=== PATIENT | female | born 1940 | race Caucasian/White ===

== ENCOUNTER 2017-08-06 08:53 | Day surgery (SDC) | payer MEDICARE, OTHER ==
[2017-08-02 14:16] VITALS: BMI 25.8
[2017-08-06 09:54] VITALS: RESP 16; TEMP 98.3
[2017-08-06] MEDS: LACTATED RINGERS 1,000 ML IV SCH ×2 (10:02→10:15)
[2017-08-06] MEDS ORDERED: LIDOCAINE 1% 20 ML VIAL (10MG/ML) FOR IV START INTRADERMA ONE (10:02)
[2017-08-06] MEDS ORDERED: GLYCOPYRROLATE 0.2 MG/ML 2 ML VIAL ONE (10:24)
[2017-08-06] MEDS ORDERED: PROPOFOL 10 MG/ML 20 ML VIAL IV ONE (10:24)
[2017-08-06] MEDS ORDERED: LIDOCAINE 1% INJ 10MG/ML (20 ML MDV) ONE (10:24)
--- NOTE | 2017-08-06 11:04 | P.PCN ---
Date of Procedure: 08/06/17 Preoperative Diagnosis: Postoperative Diagnosis: Procedure(s) Performed: Procedures: 1. Esophagogastroduodenoscopy and biopsy. 2. Total colonoscopy. Preoperative diagnosis: Iron deficiency anemia. Postoperative diagnosis: 1. Small sliding hiatal hernia with no obvious esophagitis or complicated reflux disease. 2. Mild gastritis and duodenitis. 3 Melanosis coli. 4. Sigmoid diverticulosis with no evidence of acute diverticulitis or strictures. 5. No polyps, cancer or bleeding. Preparation: HalfLytely prep. Sedation: Was provided by anesthesia. Brief clinical history: The patient is a 77-year-old female who is a resident at [facility] who is scheduled for this evaluation for iron deficiency anemia. There is no history of overt bleeding. No specific upper GI complaints or change in bowels. Procedure: With the patient on her left lateral decubitus position and after informed consent and adequate sedation, I passed the Olympus-GIF 160 video upper endoscope through the cricopharyngeus down the esophagus. GE junction was around 36-37 cm from the incisors and there was a small sliding hiatal hernia. The esophagus did not show any obvious esophagitis or complicated reflux disease. The endoscope was then passed into the stomach which was insufflated with air and inspected in detail including the retroflex view in the cardia. There was minimal mottling and erythema in the antrum but no ulcers or erosions. Pyloric channel did not show any ulcers. Duodenal bulb, post bulbar area and descending duodenum showed minimal erythema. I obtained biopsies from the duodenum, antrum and esophagus then the endoscope was withdrawn and I proceeded with the colonoscopy. Perianal area did not show any fissures or fistulas. There were no masses felt on digital rectal examination. The Olympus CFQ 160L video colonoscope was then inserted in the rectum in the usual fashion and advanced to the cecum. There was mosaic appearance and hyperpigmentation consistent with melanosis coli, otherwise, the mucosa appeared healthy. No polyps or tumors were seen. Several diverticular orifices were seen scattered in the sigmoid with no evidence of acute diverticulitis or strictures. I retroflexed the endoscope in the rectum before the endoscope was withdrawn. The patient tolerated the procedure well. Plan: The findings are summarized to the patient and her caregivers. Discussed dietary measures. Will await biopsy results and make further plans based on her course and biopsy results. Implants: Indications for Procedure: Operative Findings: Description of Procedure:
[2017-08-06 14:12] VITALS: BP 154/69; PULSE 69
== END 2017-08-06 11:53 | disposition home or self-care (01) ==
LOC: ORWHC2ENDO 08:53
DX: K44.9 Diaphragmatic hernia without obstruction or gangrene (principal); K57.30 Diverticulosis of large intestine without perforation or abscess without bleeding; K29.50 Unspecified chronic gastritis without bleeding; K21.9 Gastro-esophageal reflux disease without esophagitis; K29.80 Duodenitis without bleeding; K63.89 Other specified diseases of intestine; D50.9 Iron deficiency anemia, unspecified; I10 Essential (primary) hypertension; F03.90 Unspecified dementia, unspecified severity, without behavioral disturbance, psychotic disturbance, mood disturbance, and anxiety; F41.9 Anxiety disorder, unspecified; F32.9 Major depressive disorder, single episode, unspecified; E78.5 Hyperlipidemia, unspecified; Z79.891 Long term (current) use of opiate analgesic; Z79.899 Other long term (current) drug therapy; Z88.0 Allergy status to penicillin; Z88.1 Allergy status to other antibiotic agents
CPT/HCPCS: 88305; 88342; 45378; 43239; J2001; J2704

== ENCOUNTER → 2018-05-15 | Outpatient (CLI) | payer MEDICARE, OTHER ==
--- NOTE | 2018-05-16 07:56 | CT ---
EXAMINATION TYPE: CT abdomen pelvis w con DATE OF EXAM: 05/15/2018 HISTORY: Incisional hernia to left side per patient. CT DLP: 1640mGycm Automated Exposure Control for Dose Reduction was Utilized. CONTRAST: CT scan of the abdomen and pelvis is performed with IV Contrast, patient injected with 80 mL of Isovu e M300. COMPARISON: CT scan of abdomen and pelvis April 14, 2016 FINDINGS: LUNG BASES: There is redemonstration of cardiomegaly. There is new left basilar consolidation and/or atelectasis. LIVER/GB: There is redemonstration of large thin-walled cyst or cystic lesion that does contain some rim calcification involving the right hepatic lobe measuring roughly 14.3 cm AP by 13.2 cm transverse axial image 16 x 13.7 cm craniocaudal dimension coronal image 53 local mass effect due to size is no nadine. Small dependent gallstones and gallbladder are felt to be demonstrated axial image 33. No surrou nding inflammatory change is present. PANCREAS: No significant abnormality is seen. SPLEEN: No significant abnormality is seen. ADRENALS: No significant abnormality is seen. KIDNEYS: There is some cortical thinning in both kidneys. Symmetric cortical medullary uptake and exc retion is seen without hydronephrosis bilaterally. Bladder is poorly distended and thus suboptimally evaluated. Wall is suspiciously mildly thickened on current study. BOWEL: Oral contrast reaches level of splenic flexure. There are 2 nondigested pills in the proximal left colon. There is no suspicious small or large bowel dilatation. UTERUS/ADNEXA: Uterus is surgically absent or markedly atrophic. LYMPH NODES: No greater than 1cm abdominal or pelvic lymph nodes are appreciated. OSSEOUS STRUCTURES: Osseous structures are demineralized. Metallic hardware from left hip surgery cau ses streak artifact limiting evaluation of pelvic structures there is moderate to advanced joint spac e loss in the right hip. There is multilevel vacuum disc phenomenon. There is slight grade 1 anteroli sthesis of L5 on S1. Bilateral pars defects L5 level are seen. There is advanced disc space narrowing L4-L5 and L5-S1 levels there is prominent Schmorl node superior L1 endplate. OTHER: There is moderate to severe calcified plaque of aorta extending into branch vessels. IMPRESSION: 1. No suspicious ventral wall or incisional hernia. 2. Other findings stable including a large nonspecific thin-walled partially calcified wall cystic le neal in liver with significant local mass effect and other chronic findings as detailed above.
== END | disposition home or self-care (01) ==
LOC: RADCTMAIN 14:33
PROVIDERS: ATTEND Surgery
DX: K76.9 Liver disease, unspecified (principal); K80.20 Calculus of gallbladder without cholecystitis without obstruction; N32.89 Other specified disorders of bladder; Z98.890 Other specified postprocedural states
CPT/HCPCS: 82565; 84520; 74177; 36415; Q9967

== ENCOUNTER 2018-05-30 06:23 | Day surgery (SDC) | payer MEDICARE, OTHER ==
[2018-05-27 12:49] VITALS: BMI 25.8
[~2018-05-30 06:23] MED LIST: DEXAMETHASONE SOD PHOSPHATE 10 MG/ML 1 ML VIAL IV ONE; HEPARIN SODIUM,PORCINE 5,000 UNIT/ML 1 ML VIAL SQ ONE; LACTATED RINGERS 1,000 ML IV SCH; LIDOCAINE 1% 20 ML VIAL (10MG/ML) FOR IV START INTRADERMA PRN; MIDAZOLAM 2 MG/2 ML VIAL IV PRN; ONDANSETRON 4 MG/2 ML VIAL IVP ONE; SCOPOLAMINE 1.5MG/72HR PATCH TRANSDERM ONE; ceFAZolin IN SWFI 2 GM/20 ML SYRINGE IVP ONE
[2018-05-30 07:00] VITALS: RESP 16
[2018-05-30] MEDS ORDERED: BUPIVACAINE (PF) 0.5% 30 ML VIAL SQ ONE ×2 (07:44)
--- NOTE | 2018-05-30 07:50 | P.GSHP ---
History of Present Illness H&P Date: 05/30/18 Chief Complaint: Right upper quadrant pain, gallstones This a 78-year-old female who presents today for laparoscopic cholestatic. She' s had complaints of right upper quadrant pain. Recent CAT scan ultrasound shows evidence of gallstones. Past Medical History Past Medical History: Dementia, GERD/Reflux, Hyperlipidemia, Hypertension, Memory Impairment, Osteoarthritis (OA) Additional Past Medical History / Comment(s): CONSTIPATION, STANDS TO TRANSFER ONLY-UNABLE TO WALK. , OCCASIONAL INCONTINENCE. CYSTS RT LIVER UPPER LOBE History of Any Multi-Drug Resistant Organisms: None Reported Past Surgical History: Hysterectomy Additional Past Surgical History / Comment(s): UMBILICAL HERNIA Past Anesthesia/Blood Transfusion Reactions: Unable to Obtain Smoking Status: Never smoker - Past Family History Mother Family Medical History: Unable to Obtain Medications and Allergies Home Medications Medication Instructions Recorded Confirmed Type ALPRAZolam [Xanax] 0.25 mg PO Q8H 09/16/14 05/30/18 History Gabapentin [Neurontin] 300 mg PO DAILY 09/16/14 05/30/18 History Venlafaxine HCl [Effexor] 100 mg PO BID 09/16/14 05/30/18 History Acetaminophen Tab [Tylenol Tab] 650 mg PO Q6H PRN 04/14/16 05/30/18 History Aspirin EC [Ecotrin] 81 mg PO DAILY 04/14/16 05/30/18 History Furosemide [Lasix] 40 mg PO BID 04/14/16 05/30/18 History Menthol [Biofreeze] 1 applic TOPICAL TID PRN 04/14/16 05/30/18 History Omeprazole 20 mg PO DAILY 04/14/16 05/30/18 History Potassium Chloride [Klor-Con] 20 meq PO DAILY 04/14/16 05/30/18 History Pravastatin Sodium [Pravachol] 40 mg PO HS 04/14/16 05/30/18 History Sennosides [Senokot] 17.2 mg PO BID 04/14/16 05/30/18 History Bisacodyl [Dulcolax] 10 mg RECTAL DAILY PRN 08/02/17 05/30/18 History Cranberry Fruit Concentrate 900 mg PO DAILY 08/02/17 05/30/18 History [Cranberry] Fluticasone Propionate [Flonase 2 spray EA NOSTRIL BID 08/02/17 05/30/18 History Allergy Relief] Folic Acid 0.4 mg PO DAILY 08/02/17 05/30/18 History Anne Marie-Lant Suspension 30 ml PO DAILY PRN 08/02/17 05/30/18 History Anne Marie-Tussin Dm Syrup 10 ml PO DAILY PRN 08/02/17 05/30/18 History Isosorbide Mononitrate ER [Imdur] 30 mg PO QAM 08/02/17 05/30/18 History Melatonin 3 mg PO HS 08/02/17 05/30/18 History Artificial Tears-Hypromellose 1 drops BOTH EYES TID 05/22/18 05/30/18 History [Artificial Tear Drops] Clotrimazole [Clotrimazole 1% Top 1 applic TOPICAL HS PRN 05/22/18 05/30/18 History Soln] Cyanocobalamin [Vitamin B-12] 500 mcg PO DAILY 05/22/18 05/30/18 History Promethazine HCl 12.5 mg PO Q6H PRN 05/22/18 05/30/18 History Allergies Allergy/AdvReac Type Severity Reaction Status Date / Time Penicillins Allergy UNKNOWN TO Verified 05/30/18 07:09 [facility] STAFF MYCINS Allergy Nausea & Uncoded 05/30/18 07:09 Vomiting Surgical - Exam Vital Signs Pulse Resp BP Pulse Ox 52 L 16 160/63 98 05/30/18 06:30 05/30/18 06:30 05/30/18 06:30 05/30/18 06:30 - General no distress, cachectic - Eyes PERRL - ENT normal pinna - Neck no masses - Respiratory normal expansion - Cardiovascular Rhythm: regular - Abdomen Abdomen: soft, non tender Assessment and Plan Assessment: Cholelithiasis Chronic cholecystitis We'll perform laparoscopic cholecystectomy.
[2018-05-30] MEDS ORDERED: LIDOCAINE 1% INJ 10MG/ML (20 ML MDV) ONE (07:58)
[2018-05-30] MEDS ORDERED: NEOSTIGMINE 1 MG/ML 10 ML VIAL ONE (07:58)
[2018-05-30] MEDS ORDERED: ROCURONIUM BROMIDE 10 MG/ML 10 ML VIAL IV ONE (07:58)
[2018-05-30] MEDS ORDERED: KETOROLAC 30 MG/ML 1 ML VIAL ONE (07:58)
[2018-05-30] MEDS ORDERED: PROPOFOL 10 MG/ML 20 ML VIAL IV ONE (07:58)
[2018-05-30] MEDS ORDERED: fentaNYL (PF) 50 MCG/ML 2 ML AMP ONE (07:58)
[2018-05-30] MEDS ORDERED: GLYCOPYRROLATE 0.2 MG/ML 2 ML VIAL ONE (07:58)
[2018-05-30 09:25] VITALS: TEMP 97.2
[2018-05-30] MEDS: HYDROmorphone 0.5 MG/0.5 ML SYRINGE IVP PRN ×2 (09:28→09:50)
--- NOTE | 2018-05-30 09:45 | P.OP ---
Date of Procedure: 05/30/18 Preoperative Diagnosis: Cholecystitis Postoperative Diagnosis: Cholecystitis Adhesions Procedure(s) Performed: Laparoscopic cholecystectomy Laparoscopic lysis of adhesions Anesthesia: CARLO Surgeon: Lionel Leyva Estimated Blood Loss (ml): 5 Pathology: other (Gallbladder) Condition: stable Disposition: PACU Description of Procedure: The patient was placed on the operating table. The patient received a general endotracheal tube anesthesia. The patients abdomen was prepped and draped in the usual sterile fashion. Through an infraumbilical stab incision, the fascia of the anterior abdominal wall was grasped with a pair of Kochers and then the Veress needle was placed in the peritoneal cavity. Position of the Veress needle was confirmed with positive drop test. The abdomen was then insufflated. After adequate insufflation, the 10 mm trocar was placed in the peritoneal cavity. Following this the laparoscope was placed in the peritoneal cavity. The patient was placed in the head-up, right side up position and then a 5 mm trocar was placed in the right lateral and right subcostal position under direct visualization. A 8 mm trocar was placed in the epigastric position. There were extensive adhesions in the right upper quadrant. Using a Metzenbaum scissors the adhesions were lysed. The gallbladder was grasped in the fundus and infundibulum. Traction on the gallbladder was placed in the lateral and the cephalad positions. The triangle of Calot was visualized.. The cystic duct was bluntly dissected until the union of the cystic duct and common bile duct was seen. The cystic duct was then divided and sealed with the Harmonic scissors. A PDS Endoloop was then placed throughout the cystic duct stump. The cystic artery divided and sealed with the Harmonic scissors. The gallbladder was then removed from the liver bed using Harmonic scissors. The gallbladder was then extracted through the epigastric port site. Operative field was checked for any bleeding spots and Harmonic scissors was used to coagulate the liver bed. The abdomen was irrigated. The trocars were removed. The skin was closed using interrupted 3- 0 Vicryl suture. Dermabond dressing were applied. The patient tolerated the procedure well.
[2018-05-30] MEDS ORDERED: HYDROcodone/APAP 7.5-325MG 1 EACH TAB PO ONE (10:54)
[2018-05-30 12:41] VITALS: BP 122/71; PULSE 74
== END 2018-05-30 13:11 | disposition home or self-care (01) ==
LOC: OR 06:23
PROVIDERS: ATTEND Surgery
DX: K80.10 Calculus of gallbladder with chronic cholecystitis without obstruction (principal); K66.0 Peritoneal adhesions (postprocedural) (postinfection); F03.90 Unspecified dementia, unspecified severity, without behavioral disturbance, psychotic disturbance, mood disturbance, and anxiety; K21.9 Gastro-esophageal reflux disease without esophagitis; E78.5 Hyperlipidemia, unspecified; I10 Essential (primary) hypertension; K76.89 Other specified diseases of liver; J44.9 Chronic obstructive pulmonary disease, unspecified; Z79.82 Long term (current) use of aspirin; Z79.51 Long term (current) use of inhaled steroids; Z79.899 Other long term (current) drug therapy; Z88.1 Allergy status to other antibiotic agents; Z88.0 Allergy status to penicillin
CPT/HCPCS: 88304; 47562; J1644; J1100; J2710; J2405; J2001; J3010; J1885; J2704; J1170; J0690

== ENCOUNTER 2020-11-21 06:53 | Inpatient (IN) | payer MEDICARE, OTHER ==
--- NOTE | 2020-11-21 07:05 | ED ---
URI HPI - General Stated Complaint: JAIME, Covid + Time Seen by Provider: 11/21/20 06:55 Source: EMS Mode of arrival: EMS Limitations: altered mental status - History of Present Illness Initial Comments: 80-year-old female with history of dementia, presenting today for chief complai nt of dyspnea x 2.5 hours. Patient is brought in by EMS for shortness of breath the past 2-1/2 hours. EMS states that patient was diagnosed yesterday with Covid 19 and prior to this morning had mild symptoms of only a cough. They state that they noticed patient having difficulty breathing and low oxygen saturations this morning around 4:00 AM at the care facility. EMS was called and pt placed on 15L non-rebreather. No fevers noted by EMS or care facility. Care facility nurse Justina RN states she was also more lethargic this morning. She noted patient is AAOx1-2, has bouts of confusion. Justina denies hx of bedsores, states pt is DNR, no tube feeds, no intubations, no AED but is yes to hospitalizations other less invasive interventions. No other stated complaints, nor complaints noted by care facility. Upon arrival pt 100% on 15L non- rebreather. - Related Data Home Medications Medication Instructions Recorded Confirmed ALPRAZolam [Xanax] 0.25 mg PO BID@0500,2100 09/16/14 11/21/20 Gabapentin [Neurontin] 300 mg PO BID 09/16/14 11/21/20 Venlafaxine HCl [Effexor] 100 mg PO BID 09/16/14 11/21/20 Acetaminophen Tab [Tylenol Tab] 650 mg PO Q6H PRN 04/14/16 11/21/20 Aspirin EC [Ecotrin] 81 mg PO HS 04/14/16 11/21/20 Pravastatin Sodium [Pravachol] 40 mg PO HS 04/14/16 11/21/20 Sennosides [Senokot] 17.2 mg PO BID PRN 04/14/16 11/21/20 Fluticasone Propionate [Flonase 2 spray EA NOSTRIL HS 08/02/17 11/21/20 Allergy Relief] Artificial Tears-Hypromellose 1 drops BOTH EYES Q8H PRN 05/22/18 11/21/20 [Artificial Tear Drops] Acetaminophen Tab [Tylenol Tab] 500 mg PO QID@05,11,17,23 11/21/20 11/21/20 Hydrocortisone Suppository 25 mg RECTAL HS 11/21/20 11/21/20 [Anusol-Hc] Lansoprazole [Prevacid] 15 mg PO DAILY 11/21/20 11/21/20 Methimazole [Tapazole] 2.5 mg PO DAILY 11/21/20 11/21/20 Mouthwash 10 ml PO TID@0500,1300,2100 11/21/20 11/21/20 Mylanta [phone] 30 ml PO Q4H PRN 11/21/20 11/21/20 Allergies Allergy/AdvReac Type Severity Reaction Status Date / Time Penicillins Allergy UNKNOWN TO Verified 05/30/18 07:09 F STAFF MYCINS Allergy Nausea & Uncoded 05/30/18 07:09 Vomiting Review of Systems ROS Statement: Those systems with pertinent positive or pertinent negative responses have been documented in the HPI. ROS Other: All systems not noted in ROS Statement are negative. Past Medical History Past Medical History: Dementia, GERD/Reflux, Hyperlipidemia, Hypertension, Memory Impairment, Osteoarthritis (OA) Additional Past Medical History / Comment(s): CONSTIPATION, STANDS TO TRANSFER ONLY-UNABLE TO WALK. , OCCASIONAL INCONTINENCE. CYSTS RT LIVER UPPER LOBE History of Any Multi-Drug Resistant Organisms: None Reported Past Surgical History: Hysterectomy Additional Past Surgical History / Comment(s): UMBILICAL HERNIA Past Anesthesia/Blood Transfusion Reactions: Unable to Obtain Past Psychological History: Anxiety, Depression Smoking Status: Unknown if ever smoked Past Alcohol Use History: None Reported Past Drug Use History: None Reported - Past Family History Mother Family Medical History: Unable to Obtain General Exam - General Exam Comments Initial Comments: General: The patient is sleeping, arousable to touch Eye: +3 mm pupils are equal, round and reactive to light, extra-ocular movements are intact. No nystagmus. There is normal conjunctiva bilaterally. No signs of icterus. Ears, nose, mouth and throat: There are moist mucous membranes and no oral lesions. Neck: The neck is supple, there is no tenderness or JVD. Cardiovascular: There is a regular rate and rhythm. No murmur, rub or gallop is appreciated. Respiratory: Respirations are mild-moderately labored, breath sounds are equal. No wheezes, stridor. Rhonchi noted throughout. Gastrointestinal: Soft, non-distended, non-tender abdomen without masses or organomegaly noted. There is no rebound or guarding present. Musculoskeletal: Normal ROM, no tenderness. Strength 5/5. Sensation intact. Radial pulses equal bilaterally 2+. Neurological: A&O x 1. Atrophy noted of the LE b/l. Coordination appears grossly intact. Speech is normal. Skin: Skin is warm and dry and no rashes or lesions are noted. no LE Edema. Limitations: altered mental status Course Vital Signs 11/21/20 11/21/20 11/21/20 06:54 09:00 11:09 Temperature 97.7 F 98.0 F Pulse Rate 73 56 L 60 Respiratory 20 16 18 Rate Blood Pressure 134/83 108/46 134/60 O2 Sat by Pulse 100 97 100 Oximetry - Reevaluation(s) Reevaluation #1: AT ~7AM attempted twice to call guardian cell number provided. Would not ring. Guardian office was closed. 11/21/20 Medical Decision Making - Medical Decision Making Labs stable. Dimer elevated. troponin elevated-discussed with attending who feels this is likely secondary to covid at this time, will trend. CTA consistent with infiltrates suspicious for covid pneumonia, small pleural effusion . Pt placed on 3L and was saturating at 100%. Patient placed on antibiotics. blood culture pending. pt will be admitted for further evaluation and treatment. Dr. Ruffin accepted admission. - Lab Data Result diagrams: 11/21/20 07:06 11/21/20 07:58 Lab Results 11/21/20 11/21/20 11/21/20 Range/Units 07:06 07:06 07:06 WBC 8.6 (3.8-10.6) k/uL RBC 4.58 (3.80-5.40) m/uL Hgb 13.5 (11.4-16.0) gm/dL Hct 43.5 (34.0-46.0) % MCV 94.9 (80.0-100.0) fL MCH 29.6 (25.0-35.0) pg MCHC 31.2 (31.0-37.0) g/dL RDW 13.3 (11.5-15.5) % Plt Count 133 L (150-450) k/uL MPV 11.5 Neutrophils % (Manual) 86 % Band Neuts % (Manual) 4 % Lymphocytes % (Manual) 6 % Monocytes % (Manual) 4 % Myelocytes % 1 % Neutrophils # (Manual) 7.70 (1.3-7.7) k/uL Lymphocytes # (Manual) 0.52 L (1.0-4.8) k/uL Monocytes # (Manual) 0.34 (0-1.0) k/uL Myelocytes # (Manual) 0.09 H (0) k/uL Nucleated RBCs 0 (0-0) /100 WBC Manual Slide Review Performed Large Platelets Present RBC Morphology Normal Hypochromasia Slight PT 10.3 (9.0-12.0) sec INR 1.0 (<1.2) APTT 24.6 (22.0-30.0) sec D-Dimer 3.15 H (<0.60) mg/L FEU Sodium (137-145) mmol/L Potassium (3.5-5.1) mmol/L Chloride (98-107) mmol/L Carbon Dioxide (22-30) mmol/L Anion Gap mmol/L BUN (7-17) mg/dL Creatinine (0.52-1.04) mg/dL Est GFR (CKD-EPI)AfAm (>60 ml/min/1.73 sqM) Est GFR (CKD-EPI)NonAf (>60 ml/min/1.73 sqM) Glucose (74-99) mg/dL Lactic Ac Sepsis Rflx Plasma Lactic Acid Evelio 2.2 H* (0.7-2.0) mmol/L Calcium (8.4-10.2) mg/dL Magnesium (1.6-2.3) mg/dL Total Bilirubin (0.2-1.3) mg/dL AST (14-36) U/L ALT (4-34) U/L Alkaline Phosphatase (38-126) U/L Lactate Dehydrogenase (313-618) U/L Troponin I (0.000-0.034) ng/mL C-Reactive Protein (<10.0) mg/L NT-Pro-B Natriuret Pep pg/mL Total Protein (6.3-8.2) g/dL Albumin (3.5-5.0) g/dL 11/21/20 11/21/20 11/21/20 Range/Units 07:06 07:35 07:58 WBC (3.8-10.6) k/uL RBC (3.80-5.40) m/uL Hgb (11.4-16.0) gm/dL Hct (34.0-46.0) % MCV (80.0-100.0) fL MCH (25.0-35.0) pg MCHC (31.0-37.0) g/dL RDW (11.5-15.5) % Plt Count (150-450) k/uL MPV Neutrophils % (Manual) % Band Neuts % (Manual) % Lymphocytes % (Manual) % Monocytes % (Manual) % Myelocytes % % Neutrophils # (Manual) (1.3-7.7) k/uL Lymphocytes # (Manual) (1.0-4.8) k/uL Monocytes # (Manual) (0-1.0) k/uL Myelocytes # (Manual) (0) k/uL Nucleated RBCs (0-0) /100 WBC Manual Slide Review Large Platelets RBC Morphology Hypochromasia PT (9.0-12.0) sec INR (<1.2) APTT (22.0-30.0) sec D-Dimer (<0.60) mg/L FEU Sodium 138 (137-145) mmol/L Potassium 4.6 (3.5-5.1) mmol/L Chloride 105 (98-107) mmol/L Carbon Dioxide 26 (22-30) mmol/L Anion Gap 7 mmol/L BUN 19 H (7-17) mg/dL Creatinine 0.79 (0.52-1.04) mg/dL Est GFR (CKD-EPI)AfAm 84 (>60 ml/min/1.73 sqM) Est GFR (CKD-EPI)NonAf 73 (>60 ml/min/1.73 sqM) Glucose 133 H (74-99) mg/dL Lactic Ac Sepsis Rflx Y Plasma Lactic Acid Evelio (0.7-2.0) mmol/L Calcium 8.5 (8.4-10.2) mg/dL Magnesium 2.4 H (1.6-2.3) mg/dL Total Bilirubin 0.3 (0.2-1.3) mg/dL AST 29 (14-36) U/L ALT 12 (4-34) U/L Alkaline Phosphatase 130 H (38-126) U/L Lactate Dehydrogenase 542 (313-618) U/L Troponin I (0.000-0.034) ng/mL C-Reactive Protein 14.3 H (<10.0) mg/L NT-Pro-B Natriuret Pep 1410 pg/mL Total Protein 7.1 (6.3-8.2) g/dL Albumin 3.6 (3.5-5.0) g/dL 11/21/20 11/21/20 Range/Units 07:58 10:37 WBC (3.8-10.6) k/uL RBC (3.80-5.40) m/uL Hgb (11.4-16.0) gm/dL Hct (34.0-46.0) % MCV (80.0-100.0) fL MCH (25.0-35.0) pg MCHC (31.0-37.0) g/dL RDW (11.5-15.5) % Plt Count (150-450) k/uL MPV Neutrophils % (Manual) % Band Neuts % (Manual) % Lymphocytes % (Manual) % Monocytes % (Manual) % Myelocytes % % Neutrophils # (Manual) (1.3-7.7) k/uL Lymphocytes # (Manual) (1.0-4.8) k/uL Monocytes # (Manual) (0-1.0) k/uL Myelocytes # (Manual) (0) k/uL Nucleated RBCs (0-0) /100 WBC Manual Slide Review Large Platelets RBC Morphology Hypochromasia PT (9.0-12.0) sec INR (<1.2) APTT (22.0-30.0) sec D-Dimer (<0.60) mg/L FEU Sodium (137-145) mmol/L Potassium (3.5-5.1) mmol/L Chloride (98-107) mmol/L Carbon Dioxide (22-30) mmol/L Anion Gap mmol/L BUN (7-17) mg/dL Creatinine (0.52-1.04) mg/dL Est GFR (CKD-EPI)AfAm (>60 ml/min/1.73 sqM) Est GFR (CKD-EPI)NonAf (>60 ml/min/1.73 sqM) Glucose (74-99) mg/dL Lactic Ac Sepsis Rflx Plasma Lactic Acid Evelio 1.0 (0.7-2.0) mmol/L Calcium (8.4-10.2) mg/dL Magnesium (1.6-2.3) mg/dL Total Bilirubin (0.2-1.3) mg/dL AST (14-36) U/L ALT (4-34) U/L Alkaline Phosphatase (38-126) U/L Lactate Dehydrogenase (313-618) U/L Troponin I 0.181 H* (0.000-0.034) ng/mL C-Reactive Protein (<10.0) mg/L NT-Pro-B Natriuret Pep pg/mL Total Protein (6.3-8.2) g/dL Albumin (3.5-5.0) g/dL - EKG Data EKG Comments: Ventricular rate 74 bpm, MN interval 142 ms, QRS christianity 92 ms, QT/QTC 472/523 ms. Diffuse unusual P axis raising concern for ectopic atrial rhythm. There is prolonged QT no ST elevation or depression. Disposition Clinical Impression: Pneumonia, Dyspnea, Hypoxia, COVID-19, Elevated troponin Disposition: ADMITTED IP TO THIS HOSP Condition: Serious Is patient prescribed a controlled substance at d/c from ED?: No Time of Disposition: 10:34 Decision to Admit Reason: Admit from EC Decision Date: 11/21/20 Decision Time: 10:34
[2020-11-21 07:30] LABS: HCT 43.5 % (34.0-46.0); HGB 13.5 gm/dL (11.4-16.0); Hypochromasia Slight; MCH 29.6 pg (25.0-35.0); MCHC 31.2 g/dL (31.0-37.0); MCV 94.9 fL (80.0-100.0); Mean Platelet Volume 11.5; Platelet Count 133 k/uL (150-450); RBC 4.58 m/uL (3.80-5.40); RDW 13.3 % (11.5-15.5); WBC 8.6 k/uL (3.8-10.6)
[2020-11-21] MEDS ORDERED: SODIUM CHLORIDE 0.9% 500 ML 500 ML IV ONE (07:38)
[2020-11-21 07:40] LABS: Partial Thromboplastin Time 24.6 sec (22.0-30.0); Prothrombin Time 10.3 sec (9.0-12.0)
[2020-11-21] MEDS: SODIUM CHLORIDE 0.9% 1,000 ML IV SCH ×2 (07:48→20:53)
--- NOTE | 2020-11-21 07:50 | XR ---
EXAMINATION TYPE: XR chest 1V portable DATE OF EXAM: 11/21/2020 COMPARISON: NONE HISTORY: Weakness. Suspected covid pneumonia. TECHNIQUE: Single AP portable frontal upright view of the chest is obtained. FINDINGS: The osseous structures are demineralized. Low lung volumes are present. Cardiac silhouette size within normal limits with atherosclerotic and ectatic aorta causing right-sided tracheal deviat ion. Right mid lung and medial basilar opacities along with left basilar opacity. IMPRESSION: Low lung volumes with small left pleural effusion and left basilar acute infiltrate and/ or atelectasis along with right midlung and medial basilar acute infiltrates and/or atelectasis. Find ings may be related to covid 19 infection.
[2020-11-21 07:51] LABS: D-Dimer 3.15 mg/L FEU (<0.60)
[2020-11-21 08:10] LABS: Band Neutrophils % 4 %; Lymphocytes # (M) 0.52 k/uL (1.0-4.8); Monocytes # (M) 0.34 k/uL (0-1.0); Myelocytes # (M) 0.09 k/uL (0); Myelocytes % 1 %; Neutrophils % (M) 86 %; Nucleated Red Blood Cells 0 /100 WBC (0-0); Total Cells Counted 200
[2020-11-21 08:11] LABS: Large Platelets Present
[2020-11-21 08:34] LABS: Albumin 3.6 g/dL (3.5-5.0); Calcium 8.5 mg/dL (8.4-10.2); Magnesium 2.4 mg/dL (1.6-2.3); Potassium 4.6 mmol/L (3.5-5.1); Total Bilirubin 0.3 mg/dL (0.2-1.3); Total Protein 7.1 g/dL (6.3-8.2)
[2020-11-21 08:57] LABS: C Reactive Protein 14.3 mg/L (<10.0)
--- NOTE | 2020-11-21 10:04 | CT ---
EXAMINATION TYPE: CT chest angio for PE DATE OF EXAM: 11/21/2020 COMPARISON: Radiograph 11/21/2020 HISTORY: 80-year-old female shortness of breath, dyspnea, covid TECHNIQUE: Contiguous axial scanning of the chest performed with IV Contrast, patient injected with 1 00 mL of Isovue 370. Coronal/sagittal MIP reconstructions performed. CT DLP: 242.3 mGycm Automated exposure control for dose reduction was used. FINDINGS: Markedly enlarged thyroid gland, right greater than left. This may be evaluated with dedicated thyroi d ultrasound when patient able. Heart borderline enlarged without pericardial effusion. No flattening of the interventricular septum or reflux of contrast into the hepatic veins. Aorta shows variant direct takeoff of the left vertebral artery directly from the aortic arch. Scattered nonenlarged mediastinal lymph nodes measuring up to 6 mm in the AP window. No thoracic lymp hadenopathy by CT size criteria. Borderline enlarged caliber to the main right and left pulmonary arteries measuring 2.5 and 3.0 cm, r espectively, suggesting underlying pulmonary hypertension. There is satisfactory opacification of the pulmonary arterial system but with mild breathing motion artifact limiting assessment. No definite p ulmonary embolus. Patchy and confluent groundglass opacity. Small right and trace left pleural effusions with adjacent atelectasis. There is atelectasis of most of the basilar segments of the left lower lobe. Massive cyst replacing the right liver lobe measuring up to 13.1 cm. Calcified granuloma within the s pleen. Bones: Prominent noise artifact affecting the patient's osseous structures due to large size. IMPRESSION: 1. MILD BREATHING MOTION ARTIFACT. NO DEFINITE PULMONARY EMBOLUS. 2. PATCHY AND CONFLUENT GROUNDGLASS INFILTRATES REFLECT EARLY PULMONARY EDEMA OR COVID PNEUMONIA. 3. SMALL RIGHT AND TRACE LEFT PLEURAL EFFUSIONS. 4. BORDERLINE CARDIOMEGALY AND PULMONARY HYPERTENSION. 5. MARKEDLY ENLARGED THYROID GLAND, RIGHT GREATER THAN LEFT LOBES. DEDICATED THYROID ULTRASOUND WHEN PATIENT ABLE. 6. VERY LARGE CYST REPLACING THE RIGHT LIVER LOBE MEASURING UP TO 13.1 CM. CORRELATE FOR ANY CHRONIC ABDOMINAL PAIN THAT COULD BE ATTRIBUTED TO THIS CYST SECONDARY TO MASS EFFECT.
[2020-11-21] MEDS ORDERED: AZITHROMYCIN 500 MG in SODIUM CHLORIDE 0.9% 250 ML IVPB STA (10:21)
[2020-11-21] MEDS ORDERED: DEXAMETHASONE SOD PHOSPHATE 4 MG/ML 1 ML VIAL IV STA (10:21)
[2020-11-21] MEDS ORDERED: NALOXONE 0.4 MG/ML 1 ML VIAL IV PRN (10:40)
[2020-11-21] MEDS ORDERED: ARTIFICIAL TEARS-HYPROMELLOSE DROPS 15 ML BTL BOTH EYES PRN (12:35)
[2020-11-21] MEDS ORDERED: SENNOSIDES 8.6 MG TAB PO PRN (12:35)
[2020-11-21] MEDS: ASCORBIC ACID 500 MG TAB PO SCH (12:45)
[2020-11-21] MEDS: ZINC SULFATE 220 MG CAP PO SCH (12:45)
[2020-11-21] MEDS: ENOXAPARIN 40 MG/0.4 ML SYRINGE SQ SCH (12:45)
--- NOTE | 2020-11-21 12:59 | P.HPIM ---
History of Present Illness This is a pleasant 80 years old female with multiple medical problems including dementia, GERD, hyperlipidemia, hypertension, diverticular disease, hiatal hernia, hemorrhoids, history of dysphagia, urinary incontinence, chronic pain syndrome, bilateral leg edema and bilateral macular degeneration and generalized weakness As per documentation patient was tested positive for covid today by the test at [facility]. Patient is poor historian and could not provide information Vital signs been stable. Patient is afebrile patient is currently saturating 98 200% on his return oxygen via nasal cannula. Labs reviewed showing lymphopenia at 0.5, other than that patient has unremarkable CBC, BMP, liver enzymes, troponin slightly elevated at 0.18. High lactic acid at 2.2 To normal at 1.0 EKG showing atrial fibrillation at [address] of the chest showing no PE. Patchy antral: Groundglass infiltrates, suspicious for Covid. Enlarged thyroid gland, large cyst in the right liver Patient was given Zithromax and ceftriaxone and dexamethasone in the emergency room Review of Systems n/a Past Medical History Past Medical History: Dementia, Eye Disorder, GERD/Reflux, Hyperlipidemia, Hypertension, Liver Disease, Memory Impairment, Osteoarthritis (OA) Additional Past Medical History / Comment(s): Pt tested covid + on 11/21/20 rapi d test at [facility]. Other hx: Diverticular disease, hiatal hernia, hemorrhoids, past dysphagia, R upper lobe cyst on liver, incontinent of urine and stool, chronic pain problems-abdomin/bilateral knees, bilateral leg edema, bilateral macular degeneration, weakness. History of Any Multi-Drug Resistant Organisms: None Reported Past Surgical History: Cholecystectomy, Hernia Repair, Hysterectomy Additional Past Surgical History / Comment(s): Umbilical hernia, EGDs, colonoscopy Past Anesthesia/Blood Transfusion Reactions: No Reported Reaction Smoking Status: Unknown if ever smoked - Past Family History Mother Family Medical History: Unable to Obtain Medications and Allergies Home Medications Medication Instructions Recorded Confirmed Type ALPRAZolam [Xanax] 0.25 mg PO BID@0500,2100 09/16/14 11/21/20 History Gabapentin [Neurontin] 300 mg PO BID 09/16/14 11/21/20 History Venlafaxine HCl [Effexor] 100 mg PO BID 09/16/14 11/21/20 History Acetaminophen Tab [Tylenol Tab] 650 mg PO Q6H PRN 04/14/16 11/21/20 History Aspirin EC [Ecotrin] 81 mg PO HS 04/14/16 11/21/20 History Pravastatin Sodium [Pravachol] 40 mg PO HS 04/14/16 11/21/20 History Sennosides [Senokot] 17.2 mg PO BID PRN 04/14/16 11/21/20 History Fluticasone Propionate [Flonase 2 spray EA NOSTRIL HS 08/02/17 11/21/20 History Allergy Relief] Artificial Tears-Hypromellose 1 drops BOTH EYES Q8H PRN 05/22/18 11/21/20 History [Artificial Tear Drops] Acetaminophen Tab [Tylenol Tab] 500 mg PO QID@05,11,17,23 11/21/20 11/21/20 History Hydrocortisone Suppository 25 mg RECTAL HS 11/21/20 11/21/20 History [Anusol-Hc] Lansoprazole [Prevacid] 15 mg PO DAILY 11/21/20 11/21/20 History Methimazole [Tapazole] 2.5 mg PO DAILY 11/21/20 11/21/20 History Mouthwash 10 ml PO TID@0500,1300,2100 11/21/20 11/21/20 History Mylanta 085-777-25qq/5ml 30 ml PO Q4H PRN 11/21/20 11/21/20 History Allergies Allergy/AdvReac Type Severity Reaction Status Date / Time Penicillins Allergy UNKNOWN TO Verified 05/30/18 07:09 ECF STAFF MYCINS Allergy Nausea & Uncoded 05/30/18 07:09 Vomiting Physical Exam Vitals: Vital Signs Temp Pulse Pulse Resp BP BP Pulse Ox 11/21/20 11:48 98.2 F 69 24 127/74 98 11/21/20 11:09 98.0 F 60 18 134/60 100 11/21/20 09:00 56 L 16 108/46 97 11/21/20 06:54 97.7 F 73 20 134/83 100 Intake and Output 11/20/20 11/21/20 11/21/20 22:59 06:59 14:59 Other: Weight 63.503 kg 63.503 kg -GENERAL: The patient does not answer me or follow commands HEENT: Pupils are round and equally reacting to light. EOMI. No scleral icterus. No conjunctival pallor. Normocephalic, atraumatic. No pharyngeal erythema. No thyromegaly. CARDIOVASCULAR: S1 and S2 present. No murmurs, rubs, or gallops. PULMONARY: Chest is clear to auscultation, no wheezing or crackles. ABDOMEN: Soft, nontender, nondistended, normoactive bowel sounds. No palpable organomegaly. MUSCULOSKELETAL: No joint swelling or deformity. EXTREMITIES: No cyanosis, clubbing, or pedal edema. NEUROLOGICAL: Gross neurological examination did not reveal any focal deficits. SKIN: No rashes. No petechiae Results CBC & Chem 7: 11/21/20 07:06 11/21/20 07:58 Labs: Abnormal Lab Results - Last 24 Hours (Table) 11/21/20 11/21/20 11/21/20 Range/Units 07:06 07:06 07:06 Plt Count 133 L (150-450) k/uL Lymphocytes # (Manual) 0.52 L (1.0-4.8) k/uL Myelocytes # (Manual) 0.09 H (0) k/uL D-Dimer 3.15 H (<0.60) mg/L FEU BUN (7-17) mg/dL Glucose (74-99) mg/dL Plasma Lactic Acid Evelio 2.2 H* (0.7-2.0) mmol/L Magnesium (1.6-2.3) mg/dL Alkaline Phosphatase (38-126) U/L Troponin I (0.000-0.034) ng/mL C-Reactive Protein (<10.0) mg/L 11/21/20 11/21/20 Range/Units 07:58 07:58 Plt Count (150-450) k/uL Lymphocytes # (Manual) (1.0-4.8) k/uL Myelocytes # (Manual) (0) k/uL D-Dimer (<0.60) mg/L FEU BUN 19 H (7-17) mg/dL Glucose 133 H (74-99) mg/dL Plasma Lactic Acid Eveloi (0.7-2.0) mmol/L Magnesium 2.4 H (1.6-2.3) mg/dL Alkaline Phosphatase 130 H (38-126) U/L Troponin I 0.181 H* (0.000-0.034) ng/mL C-Reactive Protein 14.3 H (<10.0) mg/L Thrombosis Risk Factor Assmnt - Choose All That Apply Any of the Below Risk Factors Present?: Yes Each Factor Represents 1 point: Medical pt on bed rest, Serious lung disease incl. pneumonia (< 1month) Other Risk Factors: Yes Each Risk Factor Represents 2 Points: Patient confined to bed Each Risk Factor Represents 3 Points: Age 75 years or older Other congenital or acquired thrombophilia - If yes, enter type in comment: No Thrombosis Risk Factor Assessment Total Risk Factor Score: 7 Thrombosis Risk Factor Assessment Level: High Risk Assessment and Plan Assessment: Acute Covid infection Mild hypoxic respiratory failure Elevated troponin, with possible atrial fibrillation Large goiter 13.1 cm cyst of the right liver Hyperlipidemia Hypertension Dementia History of GERD History of diverticular disease History of hiatal hernia History of hemorrhoids known history of the fascia Chronic Urine incontinence Chronic pain syndrome Chronic bilateral leg edema History of bilateral macular degeneration History of generalized weakness Patient has DO NOT RESUSCITATE order Plan: This is a pleasant 80 years old female who presents because of Covid infection and elevated troponin. Continue a vitamin C. I dexamethasone and consult infectious disease continue with telemetry and cardiology consult Labs and medication were reviewed.. Continue same treatment. Continue with symptomatic treatment. Resume home medication. Monitor lytes and vitals. DVT and GI prophylaxis. Further recommendations depends on the clinical course of the patient DVT prophylaxis: SubcutaneouLovenox GI Prophylaxis: Ppi Prognosis is guarded
[2020-11-21 16:10] LABS: Ferritin 213.7 ng/mL (10.0-291.0)
[2020-11-21] MEDS ORDERED: REMDESIVIR 200 MG in SODIUM CHLORIDE 0.9% 250 ML IVPB ONE ×2 (21:00→22:00)
[2020-11-21] MEDS: GABAPENTIN 300 MG CAP PO SCH (21:05)
[2020-11-21] MEDS: VENLAFAXINE HCL 50 MG TAB PO SCH (21:05)
[2020-11-21] MEDS: ASPIRIN 81 MG PO SCH (21:05)
[2020-11-21] MEDS: ALPRAZolam 0.25 MG TAB PO SCH (21:05)
[2020-11-21] MEDS: PRAVASTATIN SODIUM 40 MG TAB PO SCH (21:05)
--- NOTE | 2020-11-22 00:12 | CONS ---
CONSULTATION DATE OF SERVICE: 11/21/2020 REASON FOR CONSULTATION: COVID-19 pneumonia. HISTORY OF PRESENT ILLNESS: The patient is a 80-year-old female who is a resident of [facility]. The patient has been brought into the ER early this morning for evaluation of increasing shortness of breath. Apparently the patient was just diagnosed with Covid 19 yesterday and this morning the patient is having any shortness of breath. She also have a cough and the patient was noticed to have slight hypoxemia. The patient was subsequently started on a non-rebreather and was transferred to the [facility] for further management. On arrival to the ER, the patient was 100% on 13 L non- rebreather. Patient on presentation to hospital has been afebrile. She is currently 93% on 3 L nasal cannula. The patient did have a normal white count with evidence of lymphopenia. Did have elevated 3.15. Did have elevated lactic acid as well as troponin. this is 0.91. The patient did have a chest x-ray which shows diffuse interstitial infiltrate. Subsequently, CT angiogram of the chest shows patient confirmed ground-glass opacity, small right and trace left pleural effusion. Also evidence of a very large cyst replacing the right liver lobe measuring chronic abdominal pain. The patient is not a very good historian. Most information has been obtained from review of chart and talking to nursing staff. REVIEW OF SYSTEMS: Could not be reliably obtained. The positive points have been mentioned in HPI. PAST MEDICAL HISTORY: Past medical history of dementia, gastroesophageal reflux disease, hypertension, hyperlipidemia and osteoarthritis. PAST SURGICAL HISTORY: Hysterectomy. SOCIAL HISTORY: long-term resident. No history of smoking drinking, drug use. FAMILY HISTORY: No pertinent findings noticed. ALLERGIES: ALLERGIES TO PENICILLIN. MEDICATIONS: The patient currently on Narcan, Protonix, Cepacol, Vitamin C, dexamethasone, Lovenox, Effexor and IV fluid. PHYSICAL EXAMINATION: Blood pressure 140/64 with a pulse of 87, temperature 98.1. She is 93% on 3 L nasal cannula. General description is an elderly female lying in bed in no distress. No tachypnea or accessory muscle of respiration use. HEENT: Examination shows no pallor or scleral icterus. Oral mucous membranes dry. Neck trachea central. No thyromegaly. LUNGS unlabored breathing with decreased breath sounds in the base, with no wheeze. Heart S1, S2. Regular rate and rhythm. ABDOMEN: Soft, no tenderness. No rigidity. Extremities: No edema of the feet. SKIN examination: No rash or mass palpable. Neurological: Patient awake and alert, however, nonverbal and orientation could not be determined. LABS: Hemoglobin 13.5, white count 8.6, D. dimer 3.15, creatinine 0.79. Liver enzymes normal. Troponin is elevated. DIAGNOSTIC IMPRESSION AND PLAN: Patient admitted to the hospital with significant hypoxia with acute respiratory failure. Source which is likely acute COVID-19 pneumonia in this patient who did have a few days onset of symptoms with evidence of hypoxemia and required CPAP on 5 L nasal cannula. PLAN: 1. The patient started on Remdesivir [address] followed by 100 mg daily times four doses. 2. Dexamethasone 7 mg IV daily along with Lovenox, zinc and vitamin C. 3. Droplet isolation, respiratory support. 4. We will follow on clinical condition and culture to further adjust medication if needed. Thank you for this consultation. Will follow this patient along with you. MMODL / IJN: [id number] /
[2020-11-22] MEDS: ALPRAZolam 0.25 MG TAB PO SCH ×3 (06:18→21:28)
[2020-11-22] MEDS: PANTOPRAZOLE 40 MG TABLET PO SCH (06:18)
[2020-11-22] MEDS: SODIUM CHLORIDE 0.9% 1,000 ML IV SCH ×2 (06:19→17:22)
[2020-11-22] MEDS: DEXAMETHASONE SOD PHOSPHATE 10 MG/ML 1 ML VIAL IV SCH (08:52)
[2020-11-22] MEDS: ASCORBIC ACID 500 MG TAB PO SCH (08:52)
[2020-11-22] MEDS: ZINC SULFATE 220 MG CAP PO SCH (08:53)
[2020-11-22] MEDS: methIMAzole 5 MG TAB PO SCH (08:53)
[2020-11-22] MEDS: ENOXAPARIN 40 MG/0.4 ML SYRINGE SQ SCH (08:53)
[2020-11-22] MEDS: VENLAFAXINE HCL 50 MG TAB PO SCH ×2 (08:53→21:29)
[2020-11-22] MEDS: GABAPENTIN 300 MG CAP PO SCH ×2 (08:53→21:29)
[2020-11-22] MEDS ORDERED: dexAMETHasone 2 MG TAB PO SCH (09:00)
--- NOTE | 2020-11-22 11:12 | P.CRDCN ---
History of Present Illness Consult date: 11/22/20 Chief complaint: Shortness of breath History of present illness: This is a 80-year-old female patient with a past medical history significant for underlying dementia who is a resident of [facility] and we are asked to see for further cardiac evaluation of abnormal cardiac enzymes. The patient is a very poor historian. She is almost nonverbal. The history was taken from the chart as well as from the nurse taking care of the patient. The patient was not feeling well at the [facility] facility where she was feeling weak and tired but no indication of increasing shortness of breath or any chest pain or chest discomfort. She was tested positive for COVID-19 infection and she was admitted to the hospital for further evaluation. We consulted to see her mainly because of abnormal cardiac enzymes and mainly abnormal troponin. The EKG showed what it seems to be ectopic atrial rhythm with diffuse nonspecific ST and T wave abnormalities. No previous medical record in the hospital. No indication that the patient was experiencing any chest pain or any chest discomfort. Beside that she is in renal failure with elevated creatinine. In the absence of any chest pain or chest discomfort and the absence of any ischemic ST and T wave abnormalities and also the abnormal kidney function and elevated creatinine I would consider a conservative medical approach for the abnormal troponin which could be related to elevated creatinine. I would add aspirin to the current medical regimen. Obtain an echocardiogram was Doppler and follow-up with the patient. Past Medical History Past Medical History: Dementia, Eye Disorder, GERD/Reflux, Hyperlipidemia, Hypertension, Liver Disease, Memory Impairment, Osteoarthritis (OA) Additional Past Medical History / Comment(s): Pt tested covid + on 11/21/20 rapid test at [facility]. Other hx: Diverticular disease, hiatal hernia, hemorrhoids, past dysphagia, R upper lobe cyst on liver, incontinent of urine and stool, chronic pain problems-abdomin/bilateral knees, bilateral leg edema, bilateral macular degeneration, weakness. History of Any Multi-Drug Resistant Organisms: None Reported Past Surgical History: Cholecystectomy, Hernia Repair, Hysterectomy Additional Past Surgical History / Comment(s): Umbilical hernia, EGDs, colonoscopy Past Anesthesia/Blood Transfusion Reactions: No Reported Reaction Smoking Status: Unknown if ever smoked - Past Family History Mother Family Medical History: Unable to Obtain Medications and Allergies Home Medications Medication Instructions Recorded Confirmed Type ALPRAZolam [Xanax] 0.25 mg PO BID@0500,2100 09/16/14 11/21/20 History Gabapentin [Neurontin] 300 mg PO BID 09/16/14 11/21/20 History Venlafaxine HCl [Effexor] 100 mg PO BID 09/16/14 11/21/20 History Acetaminophen Tab [Tylenol Tab] 650 mg PO Q6H PRN 04/14/16 11/21/20 History Aspirin EC [Ecotrin] 81 mg PO HS 04/14/16 11/21/20 History Pravastatin Sodium [Pravachol] 40 mg PO HS 04/14/16 11/21/20 History Sennosides [Senokot] 17.2 mg PO BID PRN 04/14/16 11/21/20 History Fluticasone Propionate [Flonase 2 spray EA NOSTRIL HS 08/02/17 11/21/20 History Allergy Relief] Artificial Tears-Hypromellose 1 drops BOTH EYES Q8H PRN 05/22/18 11/21/20 Hist ory [Artificial Tear Drops] Acetaminophen Tab [Tylenol Tab] 500 mg PO QID@05,11,17,23 11/21/20 11/21/20 History Hydrocortisone Suppository 25 mg RECTAL HS 11/21/20 11/21/20 History [Anusol-Hc] Lansoprazole [Prevacid] 15 mg PO DAILY 11/21/20 11/21/20 History Methimazole [Tapazole] 2.5 mg PO DAILY 11/21/20 11/21/20 History Mouthwash 10 ml PO TID@0500,1300,2100 11/21/20 11/21/20 History Mylanta 149-301-59qs/5ml 30 ml PO Q4H PRN 11/21/20 11/21/20 History Allergies Allergy/AdvReac Type Severity Reaction Status Date / Time Penicillins Allergy UNKNOWN TO Verified 05/30/18 07:09 ECF STAFF MYCINS Allergy Nausea & Uncoded 05/30/18 07:09 Vomiting Physical Exam Vitals: Vital Signs Temp Pulse Pulse Resp BP BP Pulse Ox 11/22/20 08:00 98.0 F 67 16 139/66 99 11/22/20 04:00 98.4 F 81 20 164/74 93 L 11/22/20 00:00 98.2 F 65 17 133/70 99 11/21/20 20:00 98.1 F 65 18 144/64 99 11/21/20 19:37 100 11/21/20 16:04 98.1 F 67 18 140/64 93 L 11/21/20 14:00 98.4 F 63 18 121/74 100 11/21/20 11:48 98.2 F 69 24 127/74 98 11/21/20 11:09 98.0 F 60 18 134/60 100 Intake and Output 11/21/20 11/22/20 11/22/20 22:59 06:59 14:59 Other: Voiding Method Diaper Diaper Diaper # Voids 1 1 1 # Bowel Movements 2 Weight 58 kg - Constitutional General appearance: no acute distress Results 11/21/20 07:06 11/21/20 07:58 Cardiac Enzymes 11/21/20 11/21/20 Range/Units 07:58 13:52 Troponin I 0.181 H* 0.283 H* (0.000-0.034) ng/mL Current Medications Generic Name Dose Route Start Last Admin Trade Name Freq PRN Reason Stop Dose Admin Acetaminophen 650 mg 11/21/20 12:35 Acetaminophen Tab 325 Mg Tab PO Q6H PRN Pain or Fever > 100.5 Alprazolam 0.25 mg 11/21/20 21:00 11/22/20 06:18 Alprazolam 0.25 Mg Tab PO 0.25 mg BID@0500,2100 CHRISTIANO Administration Artificial Tears 1 drops 11/21/20 12:35 Artificial Tears-Hypromellose Drops 15 Ml Btl BOTH EYES Q8H PRN DRY EYES Ascorbic Acid 1,000 mg 11/21/20 12:45 11/22/20 08:52 Ascorbic Acid 500 Mg Tab PO 1,000 mg DAILY CHRISTIANO Administration Aspirin 81 mg 11/21/20 21:00 11/21/20 21:05 Aspirin 81 Mg PO 81 mg HS CHRISTIANO Administration Dexamethasone Sodium Phosphate 6 mg 11/22/20 09:00 11/22/20 08:52 Dexamethasone Sod Phosphate 10 Mg/Ml 1 Ml Vial IV 6 mg DAILY CHRISTIANO Administration Enoxaparin Sodium 40 mg 11/21/20 12:45 11/22/20 08:53 Enoxaparin 40 Mg/0.4 Ml Syringe SQ 40 mg DAILY CHRISTIANO Administration Gabapentin 300 mg 11/21/20 21:00 11/22/20 08:53 Gabapentin 300 Mg Cap PO 300 mg BID CHRISTIANO Administration Sodium Chloride 1,000 mls @ 100 mls/hr 11/21/20 07:45 11/22/20 06:19 Saline 0.9% IV 100 mls/hr .Q10H CHRISTIANO Administration Remdesivir 100 mg/ Sodium 250 mls @ 250 mls/hr 11/22/20 22:00 Chloride IVPB 11/25/20 22:59 DAILY@2200 CHRISTIANO Methimazole 2.5 mg 11/22/20 09:00 11/22/20 08:53 Methimazole 5 Mg Tab PO 2.5 mg DAILY CHRISTIANO Administration Naloxone HCl 0.2 mg 11/21/20 10:40 Naloxone 0.4 Mg/Ml 1 Ml Vial IV Q2M PRN Opioid Reversal Pantoprazole Sodium 40 mg 11/22/20 07:30 11/22/20 06:18 Pantoprazole 40 Mg Tablet PO 40 mg [id number] CHRISTIANO Administration Pravastatin Sodium 40 mg 11/21/20 21:00 11/21/20 21:05 Pravastatin Sodium 40 Mg Tab PO 40 mg HS CHRISTIANO Administration Senna 17.2 mg 11/21/20 12:35 Sennosides 8.6 Mg Tab PO BID PRN Constipation Venlafaxine HCl 100 mg 11/21/20 21:00 11/22/20 08:53 Venlafaxine Hcl 50 Mg Tab PO 100 mg BID CHRISTIANO Administration Zinc Sulfate 220 mg 11/21/20 12:45 11/22/20 08:53 Zinc Sulfate 220 Mg Cap PO 220 mg DAILY CHRISTIANO Administration Intake and Output 11/21/20 11/22/20 11/22/20 22:59 06:59 14:59 Other: Voiding Method Diaper Diaper Diaper # Voids 1 1 1 # Bowel Movements 2 Weight 58 kg 11/21/20 07:06 11/21/20 07:58 Assessment and Plan Assessment: Assessment #1 COVID-19 infection #2 renal failure #3 elevated troponin #4 multiple comorbid conditions #5 underlying dementia Plan #1 consider a conservative medical approach #2 add aspirin to the current medical regimen #3 obtain an echocardiogram was Doppler #4 follow-up with the patient
[2020-11-22 11:45] LABS: Glucose,Whole Blood 144 mg/dL (75-99)
[2020-11-22] MEDS: ACETAMINOPHEN TAB 325 MG TAB PO PRN (12:48)
[2020-11-22] MEDS ORDERED: FUROSEMIDE 10 MG/ML 2 ML VIAL IV ONE (16:24)
[2020-11-22] MEDS ORDERED: HYDROcodone/APAP 5-325MG 1 EACH TAB PO PRN (16:29)
[2020-11-22] MEDS ORDERED: FUROSEMIDE 10 MG/ML 2 ML VIAL ONE (17:24)
--- NOTE | 2020-11-22 17:59 | ECHOF ---
Referral Reason:elevated troponins MEASUREMENTS -------- HEIGHT: 167.6 cm WEIGHT: 57.6 kg BP: 139/66 IVSd: 1.2 cm (0.6 - 1.1) LVIDd: 4.0 cm (3.9 - 5.3) LVPWd: 1.0 cm (0.6 - 1.1) IVSs: 1.4 cm LVIDs: 3.4 cm LVPWs: 1.7 cm LA Diam: 3.4 cm (2.7 - 3.8) RVIDd: 2.8 cm (< 3.3) LAESV Index (A-L): 29.82 ml/m Ao Diam: 3.0 cm (2.0 - 3.7) AV Cusp: 1.7 cm (1.5 - 2.6) EPSS: 0.8 cm MV E Campos: 0.74 m/s MV DecT: 157 ms MV A Campos: 1.34 m/s MV E/A Ratio: 0.55 AR PHT: 270 ms RAP: 5.00 mmHg RVSP: 59.75 mmHg MV EF SLOPE: 68.76 mm/s (70 - 150) MV EXCURSION: 14.38 mm (> 18.000) FINDINGS -------- This was a technically adequate study. The left ventricular size is normal. There is borderline concentric left ventricular hypertrophy. Overall left ventricular systolic function is moderately impaired with, an EF between 35 - 40 %. B hi inferior LV wall motion is hypokinetic. Basal inferoseptal LV wall motion is hypokinetic. Mid inferior LV wall motion is hypokinetic. Mid inferoseptal LV wall motion is hypokinetic. Api mariia inferior LV wall motion is hypokinetic. Apical septum LV wall motion is hypokinetic. The right ventricle is normal in size. LA is midly dilated 29-33ml/m2. The right atrium is normal in size. Interatrial and interventricular septum intact. There is mild aortic valve sclerosis. There is lnxq-bw-ieawyges aortic regurgitation. The mitral valve leaflets are mildly thickened. Ymde-ih-uofgggly mitral regurgitation is present. Moderate tricuspid regurgitation present. There is severe pulmonary hypertension. The right ventr icular systolic pressure, as measured by Doppler, is 59.75mmHg. Trace/mild (physiologic) pulmonic regurgitation. The aortic root size is normal. IVC Not well visulized. There is no pericardial effusion. CONCLUSIONS -------- 1. The left ventricular size is normal. 2. There is borderline concentric left ventricular hypertrophy. 3. Overall left ventricular systolic function is moderately impaired with, an EF between 35 - 40 %. 4. Basal inferior LV wall motion is hypokinetic. 5. Basal inferoseptal LV wall motion is hypokinetic. 6. Mid inferior LV wall motion is hypokinetic. 7. Mid inferoseptal LV wall motion is hypokinetic. 8. Apical inferior LV wall motion is hypokinetic. 9. Apical septum LV wall motion is hypokinetic. 10. LA is midly dilated 29-33ml/m2. 11. There is mild aortic valve sclerosis. 12. There is [id number] aortic regurgitation. 13. The mitral valve leaflets are mildly thickened. 14. Jygr-kz-mytlzvwq mitral regurgitation is present. 15. Moderate tricuspid regurgitation present. 16. There is severe pulmonary hypertension. 17. The right ventricular systolic pressure, as measured by Doppler, is 59.75mmHg. 18. Trace/mild (physiologic) pulmonic regurgitation. 19. There is no pericardial effusion. DICTATING MACHINE TYPIST: Mariaa Garcia RDCS
[2020-11-22] MEDS: PRAVASTATIN SODIUM 40 MG TAB PO SCH (21:28)
[2020-11-22] MEDS: ASPIRIN 81 MG PO SCH (21:28)
[2020-11-22] MEDS: REMDESIVIR 100 MG in SODIUM CHLORIDE 0.9% 250 ML IVPB SCH (21:29)
--- NOTE | 2020-11-22 22:02 | PN ---
PROGRESS NOTE DATE OF SERVICE: 11/22/2020 REASON FOR FOLLOWUP: COVID-19 pneumonia. INTERVAL HISTORY: The patient has been running a low-grade fever of 100.0 to 100.6. The patient seems to be slightly comfortable. When asked specifically, she is complaining of pain continues to cough. No sputum. No abdominal pain or diarrhea. PHYSICAL EXAMINATION: Blood pressure 136/61 with a pulse of 81, temperature 100.6. She is 95% on 4 L nasal cannula. General description is an elderly female lying in bed in no distress. RESPIRATORY SYSTEM: Unlabored breathing. Clear to auscultation anteriorly. HEART: S1, S2. Regular rate and rhythm. ABDOMEN: Soft. No tenderness. LABS: No new labs have been obtained today. DIAGNOSTIC IMPRESSION AND PLAN: Patient with acute COVID-19 pneumonia in this patient currently covered with remdesivir, day 2, along with Lovenox, Decadron and zinc; to continue along with respiratory support. Monitor clinical course closely. MMODL / IJN: [id number] /
[2020-11-23] MEDS: SODIUM CHLORIDE 0.9% 1,000 ML IV SCH ×3 (01:57→20:52)
[2020-11-23] MEDS: PANTOPRAZOLE 40 MG TABLET PO SCH (06:20)
[2020-11-23] MEDS: ALPRAZolam 0.25 MG TAB PO SCH ×3 (06:20→20:56)
[2020-11-23 07:59] LABS: Basophils % (A) 0 %; Eosinophils % (A) 0 %; HCT 43.5 % (34.0-46.0); Hypochromasia Marked; Lymphocytes % (A) 11 %; MCH 29.4 pg (25.0-35.0); MCHC 29.9 g/dL (31.0-37.0); MCV 98.3 fL (80.0-100.0); Mean Platelet Volume 11.4; Monocytes # (A) 0.7 k/uL (0-1.0); Monocytes % (A) 8 %; Neutrophils # (A) 7.3 k/uL (1.3-7.7); Neutrophils % (A) 80 %; Platelet Count 131 k/uL (150-450); RBC 4.42 m/uL (3.80-5.40); RDW 13.4 % (11.5-15.5); WBC 9.2 k/uL (3.8-10.6)
[2020-11-23 08:01] LABS: African American GFR (CKD) >90 (>60 ml/min/1.73 sqM); Anion Gap 9 mmol/L; Blood Urea Nitrogen 23 mg/dL (7-17); Carbon Dioxide 22 mmol/L (22-30); Chloride 114 mmol/L (98-107); Glucose 120 mg/dL (74-99); Non-African American GFR(CKD) 78 (>60 ml/min/1.73 sqM); Potassium 4.5 mmol/L (3.5-5.1); Sodium 145 mmol/L (137-145)
[2020-11-23] MEDS: DEXAMETHASONE SOD PHOSPHATE 10 MG/ML 1 ML VIAL IV SCH (09:43)
[2020-11-23] MEDS: ZINC SULFATE 220 MG CAP PO SCH (09:43)
[2020-11-23] MEDS: ASCORBIC ACID 500 MG TAB PO SCH (09:43)
[2020-11-23] MEDS: GABAPENTIN 300 MG CAP PO SCH ×2 (09:43→20:57)
[2020-11-23] MEDS: VENLAFAXINE HCL 50 MG TAB PO SCH ×2 (09:44→20:56)
[2020-11-23] MEDS: methIMAzole 5 MG TAB PO SCH (09:44)
[2020-11-23] MEDS: ENOXAPARIN 40 MG/0.4 ML SYRINGE SQ SCH (09:45)
--- NOTE | 2020-11-23 10:18 | P.PN ---
Subjective Progress Note Date: 11/23/20 Principal diagnosis: Abnormal cardiac enzymes This is a 80-year-old female patient with a past medical history significant for underlying dementia who is a resident of [facility] and we are asked to see for further cardiac evaluation of abnormal cardiac enzymes. The patient is a very poor historian. She is almost nonverbal. The history was taken from the chart as well as from the nurse taking care of the patient. The patient was not feeling well at the [facility] where she was feeling weak and tired but no indication of increasing shortness of breath or any chest pain or chest discomfort. She was tested positive for COVID-19 infection and she was admitted to the hospital for further evaluation. We consulted to see her mainly because of abnormal cardiac enzymes and mainly abnormal troponin. The EKG showed what it seems to be ectopic atrial rhythm with diffuse nonspecific ST and T wave abnormalities. No previous medical record in the hospital. No indication that the patient was experiencing any chest pain or any chest discomfort. Beside that she is in renal failure with elevated creatinine. In the absence of any chest pain or chest discomfort and the absence of any ischemic ST and T wave abnormalities and also the abnormal kidney function and elevated creatinine I would consider a conservative medical approach for the abnormal troponin which could be related to elevated creatinine. The patient was seen this morning. She continues to be confused. She underwent an echocardiogram which revealed severe cardiomyopathy. I am going to a small dose of lisinopril to the current medical regimen. Objective - Vital Signs Vital signs: Vital Signs Temp 99.5 F 11/23/20 04:00 Pulse 89 11/23/20 04:00 Resp 19 11/23/20 04:00 BP 128/81 11/23/20 04:00 Pulse Ox 94 L 11/23/20 04:00 Intake & Output 11/22/20 11/23/20 11/23/20 18:59 06:59 18:59 Intake Total 1200 180 Balance 1200 180 Weight 57.5 kg Intake: Oral 1200 180 Other: Voiding Method Diaper Diaper # Voids 2 1 - Constitutional General appearance: Present: no acute distress - Labs CBC & Chem 7: 11/23/20 07:02 11/23/20 07:02 Labs: Abnormal Lab Results - Last 24 Hours (Table) 11/22/20 11/23/20 11/23/20 Range/Units 11:43 07:02 07:02 MCHC 29.9 L (31.0-37.0) g/dL Plt Count 131 L (150-450) k/uL Chloride 114 H (98-107) mmol/L BUN 23 H (7-17) mg/dL Glucose 120 H (74-99) mg/dL POC Glucose (mg/dL) 144 H (75-99) mg/dL Microbiology - Last 24 Hours (Table) 11/21/20 07:58 Blood Culture - Preliminary Blood No Growth after 48 hours 11/21/20 07:38 Blood Culture - Preliminary Blood No Growth after 48 hours Assessment and Plan Assessment: Assessment #1 COVID-19 infection #2 renal failure #3 elevated troponin #4 severe cardiomyopathy #5 underlying dementia Plan #1 consider a conservative medical approach #2 continue aspirin #3 add lisinopril #4 follow-up with the patient
[2020-11-23] MEDS: ACETAMINOPHEN TAB 325 MG TAB PO PRN (12:19)
[2020-11-23] MEDS: ASPIRIN 81 MG PO SCH (20:56)
[2020-11-23] MEDS: PRAVASTATIN SODIUM 40 MG TAB PO SCH (20:57)
[2020-11-23] MEDS: REMDESIVIR 100 MG in SODIUM CHLORIDE 0.9% 250 ML IVPB SCH (20:57)
--- NOTE | 2020-11-23 23:22 | PN ---
PROGRESS NOTE DATE OF SERVICE: 11/23/2020 REASON FOR FOLLOWUP: COVID-19 pneumonia. INTERVAL HISTORY: Patient is currently afebrile. She has been slightly more awake, alert. Has been complaining of not feeling well. No chest pain. Occasional cough. No abdominal pain. No diarrhea. PHYSICAL EXAMINATION: Blood pressure 149/55 with a pulse of 78, temperature 98.2. She is 95% on 2 L nasal cannula. General description is an elderly female lying in bed in no distress. Respiratory system: Unlabored breath. Decreased breath sounds in the bases with no wheeze. Heart S1, S2. Regular rate and rhythm. ABDOMEN: Soft. No tenderness. LABS: Hemoglobin 13.1, white count 9.2, BUN of 23, creatinine 0.74. DIAGNOSTIC IMPRESSION/PLAN: Patient with acute COVID-19 pneumonia in this patient currently covered with Remdesivir, Dexamethasone, Lovenox and seems to have some improvement. To continue and monitor clinical course closely. MMODL / IJN: [id number] /
[2020-11-24 03:39] LABS: Glucose,Whole Blood 135 mg/dL (75-99)
[2020-11-24 06:01] LABS: Glucose,Whole Blood 140 mg/dL (75-99)
[2020-11-24 06:09] LABS: ABG Base Excess -3.7 mmol/L; ABG HCO3 27 mmol/L (21-25); ABG Oxygen Saturation 91.6 % (94-97); ABG PO2 77 mmHg (83-108); ABG TCO2 30 mmol/L (19-24); Allen Test Performed? Yes
[2020-11-24 06:16] LABS: ABG PCO2 95 mmHg (35-45); ABG PH 7.06 (7.35-7.45)
[2020-11-24] MEDS ORDERED: SODIUM BICARB 8.4% 50 ML SYR (1 MEQ/ML) IV STA (06:16)
[2020-11-24] MEDS ORDERED: SODIUM BICARB 8.4% 50 ML SYR (1 MEQ/ML) ONE (06:17)
[2020-11-24] MEDS: PANTOPRAZOLE 40 MG TABLET PO SCH (06:24)
[2020-11-24] MEDS: SODIUM CHLORIDE 0.9% 1,000 ML IV SCH (06:24)
[2020-11-24] MEDS: ALPRAZolam 0.25 MG TAB PO SCH ×3 (06:24→20:17)
--- NOTE | 2020-11-24 06:39 | P.EN ---
A team called on this patient for agonal breathing, and altered mental status patient admitted for COVID pneumonitis , patient has dementia and has a guardian, she was made DNR DNI upon admission. patient is not responding to sternal rub, she is having agonal breahting ABG showed severe respiratory acidosis. supplemental oxygen turned down to 2 LPM due to retaining CO2 and 2 amps of bicarb given due to severe acidosis in an attempt for her to wake up and be able to use bipap. family number on file is out of service guardian number is a law office, message left to contact the hospital primary team updated acute hypercapnic respiratory failure hypoxic respiratory failure due to covid penumonitis dementia very poor prognosis DNR/DNI unable to use Bipap due to unresponsiveness recommending comfort measures at this time, await guardian to call back 35 minutes were spent providing critical care service to this patient
[2020-11-24] MEDS: DEXAMETHASONE SOD PHOSPHATE 10 MG/ML 1 ML VIAL IV SCH (10:11)
[2020-11-24] MEDS: ASCORBIC ACID 500 MG TAB PO SCH (10:54)
[2020-11-24] MEDS: ZINC SULFATE 220 MG CAP PO SCH (10:55)
[2020-11-24] MEDS: GABAPENTIN 300 MG CAP PO SCH ×2 (10:55→20:17)
[2020-11-24] MEDS: methIMAzole 5 MG TAB PO SCH (10:55)
[2020-11-24] MEDS: ENOXAPARIN 40 MG/0.4 ML SYRINGE SQ SCH (10:55)
[2020-11-24] MEDS: VENLAFAXINE HCL 50 MG TAB PO SCH ×2 (10:55→20:16)
--- NOTE | 2020-11-24 12:48 | P.PN ---
Subjective Progress Note Date: 11/22/20 Principal diagnosis: Acute hypoxic respiratory failure secondary to COVID 19 pneumonia This is a pleasant 80 years old female with multiple medical problems including dementia, GERD, hyperlipidemia, hypertension, diverticular disease, hiatal hernia, hemorrhoids, history of dysphagia, urinary incontinence, chronic pain syndrome, bilateral leg edema and bilateral macular degeneration and generalized weakness As per documentation patient was tested positive for covid today by the test at [facility]. Patient is poor historian and could not provide information Vital signs been stable. Patient is afebrile patient is currently saturating 98 200% on his return oxygen via nasal cannula. Labs reviewed showing lymphopenia at 0.5, other than that patient has unremarkable CBC, BMP, liver enzymes, troponin slightly elevated at 0.18. High lactic acid at 2.2 To normal at 1.0 EKG showing atrial fibrillation at [address] of the chest showing no PE. Patchy antral: Groundglass infiltrates, suspicious for Covid. Enlarged thyroid gland, large cyst in the right liver Patient was given Zithromax and ceftriaxone and dexamethasone in the emergency room 11/22/20 Patient is currently lying in the bed seems to be in respiratory. Patient was given a dose of IV Lasix. Currently still requiring at 2 L oxygen with another cannula. Patient has been afebrile. Still lethargic and drowsy. Able to answer cushions slowly. No complaints of chest pain. No abdominal pain or diarrhea. No abdominal distention. Current medications reviewed. Objective - Vital Signs Vital signs: Vital Signs Temp 99.1 F 11/22/20 18:16 Pulse 81 11/22/20 16:00 Resp 22 11/22/20 16:00 BP 166/61 11/22/20 16:00 Pulse Ox 95 11/22/20 16:00 Intake & Output 11/22/20 11/22/20 11/23/20 06:59 18:59 06:59 Intake Total 1200 Balance 1200 Weight 58 kg Intake: Oral 1200 Other: Voiding Method Diaper Diaper # Voids 1 2 2 # Bowel Movements 2 - Exam -GENERAL: The patient does not answer me or follow commands HEENT: Pupils are round and equally reacting to light. EOMI. No scleral icterus. No conjunctival pallor. Normocephalic, atraumatic. No pharyngeal erythema. No thyromegaly. CARDIOVASCULAR: S1 and S2 present. No murmurs, rubs, or gallops. PULMONARY: Chest is clear to auscultation, no wheezing or crackles. ABDOMEN: Soft, nontender, nondistended, normoactive bowel sounds. No palpable organomegaly. MUSCULOSKELETAL: No joint swelling or deformity. EXTREMITIES: No cyanosis, clubbing, or pedal edema. NEUROLOGICAL: Gross neurological examination did not reveal any focal deficits. SKIN: No rashes. No petechiae - Labs CBC & Chem 7: 11/23/20 07:02 11/23/20 07:02 Labs: Abnormal Lab Results - Last 24 Hours (Table) 11/22/20 Range/Units 11:43 POC Glucose (mg/dL) 144 H (75-99) mg/dL Microbiology - Last 24 Hours (Table) 11/21/20 07:58 Blood Culture - Preliminary Blood No Growth after 24 hours 11/21/20 07:38 Blood Culture - Preliminary Blood No Growth after 24 hours Assessment and Plan Assessment: Acute Covid infection Acute hypoxic respiratory failure Elevated troponin likely due to pneumonia Dementia Large goiter 13.1 cm cyst of the right liver Hyperlipidemia Hypertension Dementia History of GERD History of diverticular disease History of hiatal hernia History of hemorrhoids known history of the fascia Chronic Urine incontinence Chronic pain syndrome Chronic bilateral leg edema History of bilateral macular degeneration History of generalized weakness Patient has DO NOT RESUSCITATE order Plan: This is a pleasant 80 years old female who presents because of Covid infection and elevated troponin. Continue a vitamin C. I dexamethasone and consult infectious disease continue with telemetry and cardiology consult Labs and medication were reviewed.. Continue same treatment. Continue with symptomatic treatment. Resume home medication. Monitor lytes and vitals. DVT and GI prophylaxis. Further recommendations depends on the clinical course of the patient DVT prophylaxis: SubcutaneouLovenox GI Prophylaxis: Ppi Prognosis is guarded Time with Patient: Greater than 30
--- NOTE | 2020-11-24 12:51 | P.PN ---
Subjective Progress Note Date: 11/23/20 Principal diagnosis: Acute hypoxic respiratory failure secondary to COVID 19 pneumonia This is a pleasant 80 years old female with multiple medical problems including dementia, GERD, hyperlipidemia, hypertension, diverticular disease, hiatal hernia, hemorrhoids, history of dysphagia, urinary incontinence, chronic pain syndrome, bilateral leg edema and bilateral macular degeneration and generalized weakness As per documentation patient was tested positive for covid today by the test at [facility]. Patient is poor historian and could not provide information Vital signs been stable. Patient is afebrile patient is currently saturating 98 200% on his return oxygen via nasal cannula. Labs reviewed showing lymphopenia at 0.5, other than that patient has unremarkable CBC, BMP, liver enzymes, troponin slightly elevated at 0.18. High lactic acid at 2.2 To normal at 1.0 EKG showing atrial fibrillation at [address] of the chest showing no PE. Patchy antral: Groundglass infiltrates, suspicious for Covid. Enlarged thyroid gland, large cyst in the right liver Patient was given Zithromax and ceftriaxone and dexamethasone in the emergency room 11/22/20 Patient is currently lying in the bed seems to be in respiratory. Patient was given a dose of IV Lasix. Currently still requiring at 2 L oxygen with another cannula. Patient has been afebrile. Still lethargic and drowsy. Able to answer cushions slowly. No complaints of chest pain. No abdominal pain or diarrhea. No abdominal distention. 11/23/20 Patient is currently confused and lethargic still requiring oxygen at 4 L with another cannula. Patient does not answer questions and very confused. Patient has been afebrile otherwise. 2-D echocardiogram showed moderately impaired left ventricular systolic function ejection fraction 35%. Cardiology is on board, reports no intervention at this time. No complaints of chest pain... Continued on Decadron Lovenox and respiratory support. DO NOT RESUSCITATE/DO NOT INTUBATE. Current medications reviewed. Objective - Vital Signs Vital signs: Vital Signs Temp 98.2 F 11/23/20 08:00 Pulse 68 11/23/20 16:00 Resp 18 11/23/20 16:00 BP 149/55 11/23/20 16:00 Pulse Ox 91 L 11/23/20 16:00 Intake & Output 11/23/20 11/23/20 11/24/20 06:59 18:59 06:59 Intake Total 300 Balance 300 Weight 57.5 kg Intake: Oral 300 Other: Voiding Method Diaper Diaper # Voids 1 1 - Exam -GENERAL: The patient does not answer me or follow commands HEENT: Pupils are round and equally reacting to light. EOMI. No scleral icterus. No conjunctival pallor. Normocephalic, atraumatic. No pharyngeal erythema. No t hyromegaly. CARDIOVASCULAR: S1 and S2 present. No murmurs, rubs, or gallops. PULMONARY: Chest is clear to auscultation, no wheezing or crackles. ABDOMEN: Soft, nontender, nondistended, normoactive bowel sounds. No palpable organomegaly. MUSCULOSKELETAL: No joint swelling or deformity. EXTREMITIES: No cyanosis, clubbing, or pedal edema. NEUROLOGICAL: Gross neurological examination did not reveal any focal deficits. SKIN: No rashes. No petechiae - Labs CBC & Chem 7: 11/23/20 07:02 11/23/20 07:02 Labs: Abnormal Lab Results - Last 24 Hours (Table) 11/23/20 11/23/20 Range/Units 07:02 07:02 MCHC 29.9 L (31.0-37.0) g/dL Plt Count 131 L (150-450) k/uL Chloride 114 H (98-107) mmol/L BUN 23 H (7-17) mg/dL Glucose 120 H (74-99) mg/dL Microbiology - Last 24 Hours (Table) 11/21/20 07:58 Blood Culture - Preliminary Blood No Growth after 48 hours 11/21/20 07:38 Blood Culture - Preliminary Blood No Growth after 48 hours Assessment and Plan Assessment: Acute Covid infection Acute hypoxic respiratory failure Elevated troponin likely due to pneumonia Atrial tachycardia Dementia Large goiter 13.1 cm cyst of the right liver Hyperlipidemia Hypertension Dementia History of GERD History of diverticular disease History of hiatal hernia History of hemorrhoids known history of the fascia Chronic Urine incontinence Chronic pain syndrome Chronic bilateral leg edema History of bilateral macular degeneration History of generalized weakness Patient has DO NOT RESUSCITATE order Plan: This is a pleasant 80 years old female who presents because of Covid infection and elevated troponin. Continue a vitamin C. I dexamethasone . ID is following. Cardiology recommends no surgical intervention at this time. Labs and medication were reviewed.. Continue same treatment. Continue with symptomatic treatment. Resume home medication. Monitor lytes and vitals. DVT and GI prophylaxis. Further recommendations depends on the clinical course of the patient DVT prophylaxis: SubcutaneouLovenox GI Prophylaxis: Ppi Prognosis is poor at this time Time with Patient: Greater than 30
[2020-11-24] MEDS: PRAVASTATIN SODIUM 40 MG TAB PO SCH (20:16)
[2020-11-24] MEDS: ASPIRIN 81 MG PO SCH (20:17)
[2020-11-24] MEDS ORDERED: MORPHINE SULFATE 2 MG/ML SYRINGE IVP STA (21:04)
--- NOTE | 2020-11-24 22:17 | PN ---
PROGRESS NOTE DATE OF SERVICE: 11/24/2020 REASON FOR FOLLOWUP: COVID-19 pneumonia. INTERVAL HISTORY: The patient is currently afebrile. The patient is hemodynamically stable. She is breathing comfortably on nasal cannula. No vomiting or diarrhea has been reported. Patient herself was unable to provide any history. PHYSICAL EXAMINATION: Blood pressure 124/ with a pulse of 87, temperature 98.5. She is 94% on 3 L nasal cannula. General description is an elderly female lying in bed in no distress. RESPIRATORY SYSTEM: Unlabored breathing with decreased breath sounds at the base. No wheeze. HEART: S1, S2. Regular rate and rhythm. ABDOMEN: Soft. No tenderness. LABS: Hemoglobin is 13, white count 9.2. BUN of 23, creatinine 0.74. DIAGNOSTIC IMPRESSION AND PLAN: Patient with acute COVID-19 pneumonia. Patient seemed to be lethargic with evidence of CO2 narcosis. been elevated. Patient would benefit from a pulmonary evaluation and possible BiPAP. The patient is currently covered with remdesivir, dexamethasone, Lovenox; to continue along with respiratory support and continue supportive care. MMODL / IJN: [id number] /
[2020-11-24] MEDS: REMDESIVIR 100 MG in SODIUM CHLORIDE 0.9% 250 ML IVPB SCH (22:19)
[2020-11-24] MEDS ORDERED: LORazepam 2 MG/ML INJ IV PRN (23:05)
[2020-11-24] MEDS ORDERED: MORPHINE SULFATE (100 MG/2 ML) 100 MG in SODIUM CHLORIDE 0.9% 100 ML IV SCH (23:15)
[2020-11-25] MEDS: SODIUM CHLORIDE 0.9% 1,000 ML IV SCH ×4 (03:06→23:08)
[2020-11-25] MEDS: PANTOPRAZOLE 40 MG TABLET PO SCH (03:07)
[2020-11-25] MEDS: ALPRAZolam 0.25 MG TAB PO SCH ×3 (03:07→19:34)
[2020-11-25] MEDS: ASCORBIC ACID 500 MG TAB PO SCH (08:10)
[2020-11-25] MEDS: GABAPENTIN 300 MG CAP PO SCH ×2 (08:10→19:34)
[2020-11-25] MEDS: ZINC SULFATE 220 MG CAP PO SCH (08:11)
[2020-11-25] MEDS: methIMAzole 5 MG TAB PO SCH (08:11)
[2020-11-25] MEDS: VENLAFAXINE HCL 50 MG TAB PO SCH ×2 (08:11→19:34)
[2020-11-25] MEDS: DEXAMETHASONE SOD PHOSPHATE 10 MG/ML 1 ML VIAL IV SCH (11:06)
[2020-11-25] MEDS: ENOXAPARIN 40 MG/0.4 ML SYRINGE SQ SCH (11:06)
[2020-11-25] MEDS: ASPIRIN 81 MG PO SCH (19:34)
[2020-11-25] MEDS: PRAVASTATIN SODIUM 40 MG TAB PO SCH (19:34)
[2020-11-25 21:39] VITALS: TEMP 97.7
[2020-11-26 05:24] VITALS: BP 85/43; PULSE 39; RESP 9
[2020-11-26] MEDS: PANTOPRAZOLE 40 MG TABLET PO SCH (05:25)
[2020-11-26] MEDS: ALPRAZolam 0.25 MG TAB PO SCH (05:25)
--- NOTE | 2020-12-12 01:25 | P.PN ---
Subjective Progress Note Date: 11/24/20 Principal diagnosis: Acute hypoxic respiratory failure secondary to COVID 19 pneumonia This is a pleasant 80 years old female with multiple medical problems including dementia, GERD, hyperlipidemia, hypertension, diverticular disease, hiatal hernia, hemorrhoids, history of dysphagia, urinary incontinence, chronic pain syndrome, bilateral leg edema and bilateral macular degeneration and generalized weakness As per documentation patient was tested positive for covid today by the test at [facility]. Patient is poor historian and could not provide information Vital signs been stable. Patient is afebrile patient is currently saturating 98 200% on his return oxygen via nasal cannula. Labs reviewed showing lymphopenia at 0.5, other than that patient has unremarkable CBC, BMP, liver enzymes, troponin slightly elevated at 0.18. High lactic acid at 2.2 To normal at 1.0 EKG showing atrial fibrillation at [address] of the chest showing no PE. Patchy antral: Groundglass infiltrates, suspicious for Covid. Enlarged thyroid gland, large cyst in the right liver Patient was given Zithromax and ceftriaxone and dexamethasone in the emergency room 11/22/20 Patient is currently lying in the bed seems to be in respiratory. Patient was given a dose of IV Lasix. Currently still requiring at 2 L oxygen with another cannula. Patient has been afebrile. Still lethargic and drowsy. Able to answer cushions slowly. No complaints of chest pain. No abdominal pain or diarrhea. No abdominal distention. 11/23/20 Patient is currently confused and lethargic still requiring oxygen at 4 L with another cannula. Patient does not answer questions and very confused. Patient has been afebrile otherwise. 2-D echocardiogram showed moderately impaired left ventricular systolic function ejection fraction 35%. Cardiology is on board, reports no intervention at this time. No complaints of chest pain... Continued on Decadron Lovenox and respiratory support. DO NOT RESUSCITATE/DO NOT INTUBATE. 11/24/2020 Overnight patient's breathing status worsened and having agonal breathing. Patient was altered. ABG showed severe respiratory acidosis. Patient is unable to use BiPAP. Contacted legal guardian. Family number was unable to reach by telephone. Awaiting finalization regarding CODE STATUS. Prognosis poor at this time. Current medications reviewed. Objective - Vital Signs Vital signs: Vital Signs Temp 98.5 F 11/24/20 08:00 Pulse 61 11/24/20 08:00 Resp 24 11/24/20 08:00 BP 119/52 11/24/20 08:00 Pulse Ox 93 L 11/24/20 08:00 Intake & Output 11/23/20 11/24/20 11/24/20 18:59 06:59 18:59 Intake Total 300 Balance 300 Weight 57.5 kg Intake: Oral 300 Other: Voiding Method Diaper Diaper Diaper # Voids 1 0 - Exam -GENERAL: The patient does not answer me or follow commands HEENT: Pupils are round and equally reacting to light. EOMI. No scleral icterus. No conjunctival pallor. Normocephalic, atraumatic. No pharyngeal erythema. No thyromegaly. CARDIOVASCULAR: S1 and S2 present. No murmurs, rubs, or gallops. PULMONARY: Chest is clear to auscultation, no wheezing or crackles. ABDOMEN: Soft, nontender, nondistended, normoactive bowel sounds. No palpable organomegaly. MUSCULOSKELETAL: No joint swelling or deformity. EXTREMITIES: No cyanosis, clubbing, or pedal edema. NEUROLOGICAL: Gross neurological examination did not reveal any focal deficits. SKIN: No rashes. No petechiae - Labs CBC & Chem 7: 11/23/20 07:02 11/23/20 07:02 Labs: Abnormal Lab Results - Last 24 Hours (Table) 11/24/20 11/24/20 11/24/20 Range/Units 03:33 06:00 06:04 ABG pH 7.06 L* (7.35-7.45) ABG pCO2 95 H* (35-45) mmHg ABG pO2 77 L (83-108) mmHg ABG HCO3 27 H (21-25) mmol/L ABG Total CO2 30 H (19-24) mmol/L ABG O2 Saturation 91.6 L (94-97) % POC Glucose (mg/dL) 135 H 140 H (75-99) mg/dL Microbiology - Last 24 Hours (Table) 11/21/20 07:58 Blood Culture - Preliminary Blood No Growth after 72 hours 11/21/20 07:38 Blood Culture - Preliminary Blood No Growth after 72 hours Assessment and Plan Assessment: Acute Covid infection Acute hypoxic respiratory failure Elevated troponin likely due to pneumonia Atrial tachycardia Dementia Large goiter 13.1 cm cyst of the right liver Hyperlipidemia Hypertension Dementia History of GERD History of diverticular disease History of hiatal hernia History of hemorrhoids known history of the fascia Chronic Urine incontinence Chronic pain syndrome Chronic bilateral leg edema History of bilateral macular degeneration History of generalized weakness Patient has DO NOT RESUSCITATE order Plan: This is a pleasant 80 years old female who presents because of Covid infection and elevated troponin. Continue a vitamin C. I dexamethasone . ID is following. Cardiology recommends no surgical intervention at this time. Labs and medication were reviewed.. Continue same treatment. Continue with symptomatic treatment. Resume home medication. Monitor lytes and vitals. DVT and GI prophylaxis. Further recommendations depends on the clinical course of the patient DVT prophylaxis: SubcutaneouLovenox GI Prophylaxis: Ppi Prognosis is poor at this time Time with Patient: Greater than 30
--- NOTE | 2020-12-12 01:27 | P.PN ---
Subjective Progress Note Date: 11/25/20 Principal diagnosis: Acute hypoxic respiratory failure secondary to COVID 19 pneumonia This is a pleasant 80 years old female with multiple medical problems including dementia, GERD, hyperlipidemia, hypertension, diverticular disease, hiatal hernia, hemorrhoids, history of dysphagia, urinary incontinence, chronic pain syndrome, bilateral leg edema and bilateral macular degeneration and generalized weakness As per documentation patient was tested positive for covid today by the test at [facility]. Patient is poor historian and could not provide information Vital signs been stable. Patient is afebrile patient is currently saturating 98 200% on his return oxygen via nasal cannula. Labs reviewed showing lymphopenia at 0.5, other than that patient has unremarkable CBC, BMP, liver enzymes, troponin slightly elevated at 0.18. High lactic acid at 2.2 To normal at 1.0 EKG showing atrial fibrillation at [address] of the chest showing no PE. Patchy antral: Groundglass infiltrates, suspicious for Covid. Enlarged thyroid gland, large cyst in the right liver Patient was given Zithromax and ceftriaxone and dexamethasone in the emergency room 11/22/20 Patient is currently lying in the bed seems to be in respiratory. Patient was given a dose of IV Lasix. Currently still requiring at 2 L oxygen with another cannula. Patient has been afebrile. Still lethargic and drowsy. Able to answer cushions slowly. No complaints of chest pain. No abdominal pain or diarrhea. No abdominal distention. 11/23/20 Patient is currently confused and lethargic still requiring oxygen at 4 L with another cannula. Patient does not answer questions and very confused. Patient has been afebrile otherwise. 2-D echocardiogram showed moderately impaired left ventricular systolic function ejection fraction 35%. Cardiology is on board, reports no intervention at this time. No complaints of chest pain... Continued on Decadron Lovenox and respiratory support. DO NOT RESUSCITATE/DO NOT INTUBATE. 11/24/2020 Overnight patient's breathing status worsened and having agonal breathing. Patient was altered. ABG showed severe respiratory acidosis. Patient is unable to use BiPAP. Contacted legal guardian. Family number was unable to reach by telephone. Awaiting finalization regarding CODE STATUS. Prognosis poor at this time. 11/25/2020 Patient is currently on high flow oxygen. Unable to use BiPAP. Altered and encephalopathic. CODE STATUS changed to comfort measures as per legal guardian and hospice care will be consulted. Continued supportive care and comfort measures. Current medications reviewed. Objective - Vital Signs Vital signs: Vital Signs Temp 97.2 F L 11/25/20 04:00 Pulse 46 L 11/25/20 17:37 Resp 16 11/25/20 17:37 BP 92/65 11/25/20 17:37 Pulse Ox 95 11/25/20 17:37 Intake & Output 11/25/20 11/25/20 11/26/20 06:59 18:59 06:59 Intake Total 0 28.883 Balance 0 .883 Weight 68.5 kg Intake: Intake, IV Titration .883 Amount Morphine Sulfate (100 mg/ .883 2 ml) 100 mg In Sodium Chloride 0.9% 100 ml @ 1 MG/HR 1.02 mls/hr IV . Q24H [facility] Rx#:[id number] Oral 0 Other: Voiding Method Diaper # Voids 1 - Exam -GENERAL: The patient does not answer me or follow commands HEENT: Pupils are round and equally reacting to light. EOMI. No scleral icterus. No conjunctival pallor. Normocephalic, atraumatic. No pharyngeal erythema. No thyromegaly. CARDIOVASCULAR: S1 and S2 present. No murmurs, rubs, or gallops. PULMONARY: Chest is clear to auscultation, no wheezing or crackles. ABDOMEN: Soft, nontender, nondistended, normoactive bowel sounds. No palpable organomegaly. MUSCULOSKELETAL: No joint swelling or deformity. EXTREMITIES: No cyanosis, clubbing, or pedal edema. NEUROLOGICAL: Gross neurological examination did not reveal any focal deficits. SKIN: No rashes. No petechiae - Labs CBC & Chem 7: 11/23/20 07:02 11/23/20 07:02 Labs: Microbiology - Last 24 Hours (Table) 11/21/20 07:58 Blood Culture - Preliminary Blood No Growth after 96 hours 11/21/20 07:38 Blood Culture - Preliminary Blood No Growth after 96 hours Assessment and Plan Assessment: Acute Covid infection Acute hypoxic respiratory failure Elevated troponin likely due to pneumonia Atrial tachycardia Dementia Large goiter 13.1 cm cyst of the right liver Hyperlipidemia Hypertension Dementia History of GERD History of diverticular disease History of hiatal hernia History of hemorrhoids known history of the fascia Chronic Urine incontinence Chronic pain syndrome Chronic bilateral leg edema History of bilateral macular degeneration History of generalized weakness Patient has DO NOT RESUSCITATE order Plan: This is a pleasant 80 years old female who presents because of Covid infection a nd elevated troponin. Continue a vitamin C. I dexamethasone . Cardiology recommends no surgical intervention at this time. Labs and medication were reviewed.. Continue same treatment. Continue with symptomatic treatment. Resume home medication. Monitor lytes and vitals. DVT and GI prophylaxis. Further recommendations depends on the clinical course of the patient DVT prophylaxis: SubcutaneouLovenox GI Prophylaxis: Ppi Prognosis is poor at this time
--- NOTE | 2020-12-12 01:31 | P.DS ---
Providers Date of admission: 11/21/20 10:50 Expected date of discharge: 11/26/20 Attending physician: Kvng Jay Consults: 11/21/20 11:46 Consult Physician Urgent Consulting Provider: Aliza Villegas Consult Reason/Comments: high troponin Do you want consulting provider notified?: Yes 11/21/20 12:40 Consult Physician Urgent Consulting Provider: Patty Petit Consult Reason/Comments: covid pna Do you want consulting provider notified?: Yes Primary care physician: Victor M Molina [facility] Course: diagnosis Acute Covid infection Acute hypoxic respiratory failure Elevated troponin likely due to pneumonia Atrial tachycardia Dementia Large goiter 13.1 cm cyst of the right liver Hyperlipidemia Hypertension Dementia History of GERD History of diverticular disease History of hiatal hernia History of hemorrhoids known history of the fascia Chronic Urine incontinence Chronic pain syndrome Chronic bilateral leg edema History of bilateral macular degeneration History of generalized weakness Patient has DO NOT RESUSCITATE order Hospital course This is a pleasant 80 years old female with multiple medical problems including dementia, GERD, hyperlipidemia, hypertension, diverticular disease, hiatal hernia, hemorrhoids, history of dysphagia, urinary incontinence, chronic pain syndrome, bilateral leg edema and bilateral macular degeneration and generalized weakness As per documentation patient was tested positive for covid today by the test at [facility]. Patient is poor historian and could not provide information Vital signs been stable. Patient is afebrile patient is currently saturating 98 200% on his return oxygen via nasal cannula. Labs reviewed showing lymphopenia at 0.5, other than that patient has unremarkable CBC, BMP, liver enzymes, troponin slightly elevated at 0.18. High lactic acid at 2.2 To normal at 1.0 EKG showing atrial fibrillation at [address] of the chest showing no PE. Patchy antral: Groundglass infiltrates, suspicious for Covid. Enlarged thyroid gland, large cyst in the right liver Patient was given Zithromax and ceftriaxone and dexamethasone in the emergency room 11/22/20 Patient is currently lying in the bed seems to be in respiratory. Patient was given a dose of IV Lasix. Currently still requiring at 2 L oxygen with another cannula. Patient has been afebrile. Still lethargic and drowsy. Able to answer cushions slowly. No complaints of chest pain. No abdominal pain or diarrhea. No abdominal distention. 11/23/20 Patient is currently confused and lethargic still requiring oxygen at 4 L with another cannula. Patient does not answer questions and very confused. Patient has been afebrile otherwise. 2-D echocardiogram showed moderately impaired left ventricular systolic function ejection fraction 35%. Cardiology is on board, reports no intervention at this time. No complaints of chest pain... Continued on Decadron Lovenox and respiratory support. DO NOT RESUSCITATE/DO NOT INTUBATE. 11/24/2020 Overnight patient's breathing status worsened and having agonal breathing. Patient was altered. ABG showed severe respiratory acidosis. Patient is unable to use BiPAP. Contacted legal guardian. Family number was unable to reach by telephone. Awaiting finalization regarding CODE STATUS. Prognosis poor at this time. 11/25/2020 Patient is currently on high flow oxygen. Unable to use BiPAP. Altered and encephalopathic. CODE STATUS changed to comfort measures as per legal guardian and hospice care will be consulted. Continued supportive care and comfort measures. 11/26/2020 Patient was on 11/26/2020 at 7 AM. Family and guardian and [employer] was called by RN. Patient Condition at Discharge: Undetermined Plan - Discharge Summary Discharge Rx Participant: No New Discharge Prescriptions: No Action Gabapentin [Neurontin] 300 mg PO BID ALPRAZolam [Xanax] 0.25 mg PO BID@0500,2100 Venlafaxine HCl [Effexor] 100 mg PO BID Sennosides [Senokot] 17.2 mg PO BID PRN PRN Reason: Constipation Pravastatin Sodium [Pravachol] 40 mg PO HS Acetaminophen Tab [Tylenol Tab] 650 mg PO Q6H PRN PRN Reason: Pain Or Fever > 100.5 Aspirin EC [Ecotrin] 81 mg PO HS Fluticasone Propionate [Flonase Allergy Relief] 2 spray EA NOSTRIL HS Artificial Tears-Hypromellose [Artificial Tear Drops] 1 drops BOTH EYES Q8H PRN PRN Reason: DRY EYES Acetaminophen Tab [Tylenol Tab] 500 mg PO QID@05,11,17,23 Mouthwash 10 ml PO TID@0500,1300,2100 Lansoprazole [Prevacid] 15 mg PO DAILY Methimazole [Tapazole] 2.5 mg PO DAILY Hydrocortisone Suppository [Anusol-Hc] 25 mg RECTAL HS Mylanta [id number]/5ml 30 ml PO Q4H PRN PRN Reason: Indigestion Discharge Medication List ALPRAZolam [Xanax] 0.25 mg PO BID@0500,2100 09/16/14 [History] Gabapentin [Neurontin] 300 mg PO BID 09/16/14 [History] Venlafaxine HCl [Effexor] 100 mg PO BID 09/16/14 [History] Acetaminophen Tab [Tylenol Tab] 650 mg PO Q6H PRN 04/14/16 [History] Aspirin EC [Ecotrin] 81 mg PO HS 04/14/16 [History] Pravastatin Sodium [Pravachol] 40 mg PO HS 04/14/16 [History] Sennosides [Senokot] 17.2 mg PO BID PRN 04/14/16 [History] Fluticasone Propionate [Flonase Allergy Relief] 2 spray EA NOSTRIL HS 08/02/17 [History] Artificial Tears-Hypromellose [Artificial Tear Drops] 1 drops BOTH EYES Q8H PRN 05/22/18 [History] Acetaminophen Tab [Tylenol Tab] 500 mg PO QID@05,11,17,23 11/21/20 [History] Hydrocortisone Suppository [Anusol-Hc] 25 mg RECTAL HS 11/21/20 [History] Lansoprazole [Prevacid] 15 mg PO DAILY 11/21/20 [History] Methimazole [Tapazole] 2.5 mg PO DAILY 11/21/20 [History] Mouthwash 10 ml PO TID@0500,1300,2100 11/21/20 [History] Mylanta [id number]/5ml 30 ml PO Q4H PRN 11/21/20 [History] Follow up Appointment(s)/Referral(s): Victor M Molina MD [Primary Care Provider] - 1-2 days Discharge Disposition: - Preliminary Cause of Preliminary Cause of : Acute hypoxic respiratory failure secondary to Covid pneumonia
--- NOTE | 2020-12-12 13:54 | CDI ---
Documentation Clarification Form Date: 12/12/2020 01:51 PM CDS: Karly Angeles, LASHAWN, CCDS Admit Date: 11/21/2020 10:50 AM Patient Name: Dana Alvarez Discharge Date/: 11/26/2020 10:22 AM ATTENTION: The Clinical Documentation Specialists (CDI) and [facility] Coding Staff appreciate your assistance in clarifying documentation. Please respond to the clarification below the line at the bottom and electronically sign. The CDI & [facility] Coding staff will review the response and follow-up if needed. Please note: Queries are made part of the Legal Health Record. If you have any questions, please contact the author of this message via ITS. Dear Dr. Colby Camarillo: Atrial Fibrillation is documented in the 11/21 History & Physical and also in subsequent Progress Notes: "EKG showing atrial fibrillation" without further specificity. History/Risk Factors: Hypertension, Hyperlipidemia, GERD, Diverticular disease, Chronic pain syndrome, Dementia, Anxiety, Depression. Clinical Indicators: Presented to the ED via EMS on 11/21 with dyspnea & tested positive for COVID 19 at SNF. ED Impression: Pneumonia, COVID 19, Dyspnea, Hypoxia & Elevated Troponin. EKG 11/21: R 74 Unusual P axis, possible ectopic atrial rhythm. EKG 11/21 Repeat: R 72 Atrial fibrillation, Nonspecific ST & T wave abnormality EKG 11/22: R 83 Sinus rhythm w/occasional and consecutive PVCs & fusion complexes 11/22 ECHO: Borderline LVH, EF 35-40%, Mild aortic valve sclerosis, Mild-Mod AR, Mild-Mod MR, Mod TR, Severe pulmonary hypertension. Treatment 11/21: IV fluid bolus 500 mls @ 999 mls/hr, IV Azithromycin, IV Rocephin, IV Decadron, IV Remdesivir, IV Lasix (11/22); IV Na Bicarb (11/24). Cardiology Consult 11/22: Elevated troponin could be related to elevated Creatinine. In your professional opinion, can you please clarify the following: Atrial Fibrillation is ruled out Atrial Fibrillation is ruled in, please specify type: o Chronic/Permanent o Paroxysmal o Persistent o Other, please specify o Unable to determine (Last Revision: February 2018) No AFIB in my EMR MTDD
--- NOTE | 2020-12-12 14:05 | CDI ---
Documentation Clarification Form Date: 12/12/2020 01:51 PM CDS: Karly Angeles, LASHAWN, CCDS Admit Date: 11/21/2020 10:50 AM Patient Name: Dana Alvarez Discharge Date/: 11/26/2020 10:22 AM ATTENTION: The Clinical Documentation Specialists (CDI) and [facility] Coding Staff appreciate your assistance in clarifying documentation. Please respond to the clarification below the line at the bottom and electronically sign. The CDI & [facility] Coding staff will review the response and follow-up if needed. Please note: Queries are made part of the Legal Health Record. If you have any questions, please contact the author of this message via ITS. Dear Dr. Fly Mills: Renal failure is documented in the Cardiology Consult on 11/22 and subsequent Progress Note 11/23 without further specificity. History/Risk Factors: Hypertension, Hyperlipidemia, GERD, Diverticular disease, Chronic pain syndrome, Dementia, Anxiety, Depression. Clinical Indicators: Presented to the ED via EMS on 11/21 with dyspnea & tested positive for COVID 19 at SNF. ED Impression: Pneumonia, COVID 19, Dyspnea, Hypoxia & Elevated Troponin. 11/21 VS: T 97.7, P 73 - 56*, R 20 (cough), BP 134/83, PO 100 15% nrb LAB 11/21: Pl Ct 133*, Lymph 0.52*, D Dimer 3.15^, BUN 19^, Cr (0.79), Glucose 133^, Lactic Acid 2.2^^, Magnesium 2.4^, Alk Phos 130^, Trop 0.181^^, 0.283^^; CRP 14.3^, Procalcitonin 0.91^ 11/21 GFR 73. 11/23: 78. 04/14/2016 GFR 54 EKG 11/21: R 74 Unusual P axis, possible ectopic atrial rhythm. EKG 11/21 Repeat: R 72 Atrial fibrillation, Nonspecific ST & T wave abnormality EKG 11/22: R 83 Sinus rhythm w/occasional and consecutive PVCs & fusion complexes 11/22 ECHO: Borderline LVH, EF 35-40%, Mild aortic valve sclerosis, Mild-Mod AR, Mild-Mod MR, Mod TR, Severe pulmonary hypertension. RAD: 11/21 CXR: Low lung volumes with small left pleural effusion and left acute infiltrate and/or atelectasis with right midlung & medial bilateral acute infiltrates and/or atelectasis, may be related to COVID 19. Treatment 11/21: IV fluid bolus 500 mls @ 999 mls/hr, IV Azithromycin, IV Rocephin, IV Decadron, IV Remdesivir, IV Lasix (11/22); IV Na Bicarb (11/24). Cardiology Consult 11/22: Elevated troponin could be related to elevated Creatinine Nephrology is not consulted. In order to capture the severity of condition, please clarify if the condition signifies: Renal Failure is ruled out Acute renal failure, Please specify etiology (if known): Acute on chronic renal failure o CKD Stage 1 GFR >90 o CKD Stage 2 GFR 60-89 o Other, please specify: Other, please specify Unable to determine (Last Revision: February 2018) CKD Stage 2 GFR 60-89 MTDD
--- NOTE | 2020-12-12 14:13 | CDI ---
Documentation Clarification Form Date: 12/12/2020 01:51 PM CDS: Karly Angeles, LASHAWN, CCDS Admit Date: 11/21/2020 10:50 AM Patient Name: Dana Alvarez Discharge Date/: 11/26/2020 10:22 AM ATTENTION: The Clinical Documentation Specialists (CDI) and [facility] Coding Staff appreciate your assistance in clarifying documentation. Please respond to the clarification below the line at the bottom and electronically sign. The CDI & [facility] Coding staff will review the response and follow-up if needed. Please note: Queries are made part of the Legal Health Record. If you have any questions, please contact the author of this message via ITS. Dear Dr. Fly Mills: Per the 11/23 Attending Progress Note: "Patient is currently confused and lethargic still requiring oxygen at 4 L with nasal cannula. Patient does not answer questions and is very confused." Per the 11/25/2020 Attending Progress Note & 11/26/2020 Discharge Summary: "Altered an encephalopathic". History/Risk Factors: Hypertension, Hyperlipidemia, GERD, Diverticular disease, Chronic pain syndrome, Dementia, Anxiety, Depression. Resident of a SNF with a legal guardian. DNR. Clinical Indicators: Presented to the ED via EMS on 11/21 with dyspnea & tested positive for COVID 19 at SNF. ED Impression: Pneumonia, COVID 19, Dyspnea, Hypoxia & Elevated Troponin. Patient on 11/26/2020 @ 10:22. PCD: COVID 19 Pneumonia and Acute Hypoxic Respiratory Failure. 11/21 VS: T 97.7, P 73 - 56*, R 20 (cough), BP 134/83, PO 100 15% nrb LAB 11/21: Pl Ct 133*, Lymph 0.52*, D Dimer 3.15^, BUN 19^, Cr (0.79), Glucose 133^, Lactic Acid 2.2^^, Magnesium 2.4^, Alk Phos 130^, Trop 0.181^^, 0.283^^; CRP 14.3^, Procalcitonin 0.91^ EKG 11/21: R 74 Unusual P axis, possible ectopic atrial rhythm. EKG 11/21 Repeat: R 72 Atrial fibrillation, Nonspecific ST & T wave abnormality EKG 11/22: R 83 Sinus rhythm w/occasional and consecutive PVCs & fusion complexes 11/22 ECHO: Borderline LVH, EF 35-40%, Mild aortic valve sclerosis, Mild-Mod AR, Mild-Mod MR, Mod TR, Severe pulmonary hypertension. RAD: 11/21 CXR: Low lung volumes with small left pleural effusion and left acute infiltrate and/or atelectasis with right midlung & medial bilateral acute infiltrates and/or atelectasis, may be related to COVID 19. Treatment 11/21: IV fluid bolus 500 mls @ 999 mls/hr, IV Azithromycin, IV Rocephin, IV Decadron, IV Remdesivir, IV Lasix (11/22); IV Na Bicarb (11/24). Cardiology Consult 11/22: Elevated troponin could be related to elevated Creatinine Nephrology is not consulted. Infectious Disease Consult: Admit with Hypoxia with Acute Respiratory Failure, source is likely COVID 19 Pneumonia. In your professional opinion, can you please clarify the specific type of Encephalopathy, if known? Anoxic Encephalopathy Metabolic Encephalopathy Septic Encephalopathy Toxic Encephalopathy Other, please specify Unable to determine (Last Revision: February 2018) Anoxic Encephalopathy MTDD
== END 2020-11-26 10:22 | disposition expired | DRG 177 ==
LOC: EC 06:53 → 4SSUR 10:50 → 3SCARD 15:30
PROVIDERS: ADMIT Hospitalist; ATTEND Hospitalist
PROC: 5A0955A Assistance with Respiratory Ventilation, Greater than 96 Consecutive Hours, High Flow/Velocity Cannula (ICD-10-PCS; principal; 2020-11-21)
PROC: XW033E5 Introduction of Remdesivir Anti-infective into Peripheral Vein, Percutaneous Approach, New Technology Group 5 (ICD-10-PCS; 2020-11-21)
DX: U07.1 COVID-19 (principal); J96.01 Acute respiratory failure with hypoxia; J12.82 Pneumonia due to coronavirus disease 2019; I42.9 Cardiomyopathy, unspecified; I47.1 Supraventricular tachycardia; E87.2 Acidosis; G93.1 Anoxic brain damage, not elsewhere classified; Z66 Do not resuscitate; R32 Unspecified urinary incontinence; K57.90 Diverticulosis of intestine, part unspecified, without perforation or abscess without bleeding; D72.810 Lymphocytopenia; E04.9 Nontoxic goiter, unspecified; E78.5 Hyperlipidemia, unspecified; K76.89 Other specified diseases of liver; F03.90 Unspecified dementia, unspecified severity, without behavioral disturbance, psychotic disturbance, mood disturbance, and anxiety; G89.4 Chronic pain syndrome; I10 Essential (primary) hypertension; R79.89 Other specified abnormal findings of blood chemistry; R15.9 Full incontinence of feces; Z51.5 Encounter for palliative care; K21.9 Gastro-esophageal reflux disease without esophagitis; N18.30 Chronic kidney disease, stage 3 unspecified; K44.9 Diaphragmatic hernia without obstruction or gangrene; K64.9 Unspecified hemorrhoids; Z79.82 Long term (current) use of aspirin; Z79.899 Other long term (current) drug therapy; Z90.710 Acquired absence of both cervix and uterus; Z90.49 Acquired absence of other specified parts of digestive tract; M19.90 Unspecified osteoarthritis, unspecified site; Z88.1 Allergy status to other antibiotic agents; Z88.8 Allergy status to other drugs, medicaments and biological substances
CPT/HCPCS: 36415; 36600; 71045; 71275; 80048; 80053; 82728; 82805; 83605; 83615; 83735; 83880; 84145; 84484; 85025; 85379; 85610; 85730; 86140; 87040; 93005; 93306; 94760; 96365; 96375; 99285